=== PATIENT | female | born 1945 | race Caucasian/White ===

== ENCOUNTER 2020-01-16 08:16 | Outpatient (NON) | payer MEDICARE, MEDICAID, SELFPAY ==
[2020-01-15 20:21] LABS: Add Urine Microscopic? YES; Appearance Urine Clear (Clear); Bacteria Urine 1+ /hpf; Bilirubin Urine Negative (Negative); Blood Urine 1+ (Negative); Color Urine Yellow (Yellow); Glucose Urine UA Negative (Negative); Ketones Urine Negative (Negative); Leukocyte Esterase Ur 3+ LEU/UL (Negative); Mucus Urine Rare /lpf; Nitrate Urine Negative (Negative); Protein Urine Negative (Negative); RBC Urine 0-2 /hpf (0-2); Urobilinogen Urine Negative mg/dL (<2.0); WBC Urine 31-50 /hpf
[2020-01-16 16:50] LABS: SARS-CoV-2 RNA PCR Negative
== END 2020-01-16 08:17 ==
PROVIDERS: PCP Family Medicine; Visit Provider Family Medicine
DX: R68.89 Other general symptoms and signs (principal); Z20.828 Contact with and (suspected) exposure to other viral communicable diseases
CPT/HCPCS: 81001; 87086; 87088; 87635; C9803; U0003

== ENCOUNTER 2020-06-25 07:53 | Inpatient (IN) | payer MEDICARE, MEDICAID, SELFPAY ==
[2020-06-25] VITALS (11 sets, daily range): BP systolic 115–171; BP diastolic 59–103; PULSE 66–108; RESP 14–22; TEMP 36.3–37.2; O2SAT 93–99; BMI 22.7
--- NOTE | ~2020-06-25 | XR_ITS ---
EXAMINATION: XR chest PICC line DATE: 06/30/2020 15:37 INDICATION: Central line placement. TECHNIQUE: A single frontal view of the chest was obtained. COMPARISON: Chest single view 06/26/2020 FINDINGS: The chest demonstrates clear lungs without pneumonia, pleural effusion, or pneumothorax. Th e heart size is normal. A left upper extremity peripherally inserted central venous catheter (PICC) i s seen with tip at the superior cavoatrial junction. IMPRESSION: 1. PICC tip at the superior cavoatrial junction. Reviewed, dictated and finalized at location A.
--- NOTE | ~2020-06-25 | XR_ITS ---
EXAMINATION: XR chest 1V portable DATE: 06/26/2020 09:07 INDICATION: Febrile illness. TECHNIQUE: A single frontal view of the chest was obtained. COMPARISON: Chest 2 views 01/11/2019 FINDINGS: There is eventration of left hemidiaphragm. No pneumonia, pleural effusion, or pneumothorax . The heart size is normal. IMPRESSION: 1. No acute cardiopulmonary disease. Reviewed, dictated and finalized at location A.
[2020-06-25 08:20] LABS: Basophils Absolute Auto 0.1 K/mm3 (0.0-0.1); Basophils Percent Auto 0.7 % (0.2-1.2); Eosinophils Absolute Auto 0.1 K/mm3 (0-0.3); Eosinophils Percent Auto 0.8 % (0-4.4); Hematocrit 36.8 % (37.0-47.0); Immature Granulocyte Absolute 0.04 K/mm3 (0.00-0.031); Immature Granulocyte Percent A 0.4 % (0-0.5); Lymphocytes Absolute Auto 1.49 K/mm3 (0.9-3.2); Lymphocytes Percent Auto 13.4 % (18.3-44.2); Mean Corpuscular HGB Conc 32.6 g/dl (32-36); Mean Corpuscular Hemoglobin 32.3 pg (26-34); Mean Corpuscular Volume 98.9 fl (80-100); Mean Platelet Volume 10.3 fl (7.4-10.4); Monocytes Absolute Auto 0.7 K/mm3 (0.1-0.6); Neutrophils Absolute Auto 8.7 K/mm3 (1.3-6.7); Neutrophils Percent Auto 78.7 % (45.5-73.1); Platelet Count Result 248 k/mm3 (150-375); Red Blood Count 3.72 M/mm3 (4.2-5.4); Red Cell Distribution Width 12.5 % (11.5-14.5); White Blood Count 11.1 K/mm3 (4.5-10.0)
[2020-06-25 08:29] LABS: Alanine Aminotransferase 14 U/L (4-35); Albumin Level 3.7 g/dL (3.5-5.1); Alkaline Phosphatase 109 U/L (38-126); Anion Gap 7 mmol/L (8-16); Aspartate Amino Transferase 28 U/L (14-36); Bilirubin,Total 0.5 mg/dL (0.2-1.3); Blood Urea Nitrogen 17 mg/dL (7-17); Carbon Dioxide 29 mmol/L (22-30); Chloride 105 mmol/L (98-107); Estimated CRCL calculation 44 ml/min; Estimated Glomerular Filt Rate > 60; Glucose 92 mg/dL (65-105); Potassium 4.2 mmol/L (3.4-5.0); Sodium 141 mmol/L (137-145)
[2020-06-25 08:33] LABS: Add Urine Microscopic? YES; Appearance Urine Cloudy (Clear); Bacteria Urine Trace /hpf; Bilirubin Urine Negative (Negative); Blood Urine 1+ (Negative); Color Urine Yellow (Yellow); Glucose Urine UA Negative (Negative); Ketones Urine Negative (Negative); Leukocyte Esterase Ur 3+ LEU/UL (Negative); Mucus Urine Few /lpf; Nitrate Urine Positive (Negative); Protein Urine Negative (Negative); Specific Grav Ur 1.014 (1.001-1.035); Transitional Epi Cells Urine Rare /hpf (None Seen); Urobilinogen Urine Negative mg/dL (<2.0); WBC Urine 51-75 /hpf
--- NOTE | 2020-06-25 09:57 | ED.FEVER ---
HPI - Fever General Chief Complaint: Fever Stated Complaint: fever Time Seen by Provider: 06/25/20 08:12 History of Present Illness HPI Narrative: Patient is a 75-year-old female who presents ER with febrile illness. She had a fever over 102 ?F earlier this morning. Patient has been treated for the last 9 days with IM ceftriaxone for UTI. Patient has a chronic indwelling Yo due to neurogenic bladder. Last changed on 06/08/2020. She is denying any discomfort but history is somewhat limited due to expressive aphasia from a past CVA. The assisted is not have sensitivities to patient's urinalysis at this time. Patient has multiple drug allergies which limits how they can treat her UTIs. Related Data Home Medications Medication Instructions Recorded Confirmed acetaminophen 1,000 mg PO QID PRN 06/25/20 06/25/20 apixaban [Eliquis] 2.5 mg PO BID 06/25/20 06/25/20 aspirin 81 mg PO DAILY 06/25/20 06/25/20 atorvastatin 10 mg PO HS 06/25/20 06/25/20 baclofen 5 mg PO BID 06/25/20 06/25/20 cholecalciferol (vitamin D3) 25 mcg PO DAILY 06/25/20 06/25/20 [Vitamin D3] colchicine 0.6 mg PO DAILY 06/25/20 06/25/20 docusate sodium 100 mg PO DAILY 06/25/20 06/25/20 gabapentin 300 mg PO TID 06/25/20 06/25/20 lidocaine [Lidocaine Pain Relief] 1 patch TOPICAL DAILY PRN 06/25/20 06/25/20 magnesium hydroxide [Milk of 400 mg PO DAILY PRN 06/25/20 06/25/20 Magnesia] ondansetron HCl [Zofran] 4 mg PO Q8H 06/25/20 06/25/20 tamsulosin 0.4 mg PO DAILY 06/25/20 06/25/20 Allergies Allergy/AdvReac Type Severity Reaction Status Date / Time clindamycin Allergy Unknown Unknown Verified 06/25/20 14:27 doxycycline Allergy Unknown Nausea Verified 06/25/20 14:27 erythromycin base Allergy Unknown Unknown Verified 06/25/20 14:27 levofloxacin Allergy Unknown Unknown Verified 06/25/20 14:27 Penicillins Allergy Unknown Unknown Verified 06/25/20 14:27 Sulfa (Sulfonamide Allergy Unknown Unknown Verified 06/25/20 14:27 Antibiotics) sulfamethizole Allergy Unknown Unknown Verified 06/25/20 14:27 trimethoprim Allergy Unknown Unknown Verified 06/25/20 14:27 Review of Systems Review of Systems: ROS unobtainable: Yes unobtainable due to medical condition (Expressive aphasia) Constitutional: Constitutional: Denies chills and Reports fever(s) PMFSH Past Medical History Medical History (Updated 06/25/20 @ 19:32 by Jose Flores MD) Above knee amputation of right lower extremity Amputated toe 4th toe on the left Anxiety Cerebrovascular accident Chronic pain CKD (chronic kidney disease) COPD (chronic obstructive pulmonary disease) Depression Expressive aphasia GERD (gastroesophageal reflux disease) History of congestive heart failure Hyperlipidemia Hypertension Surgical History Surgical History H/O tubal ligation History of appendectomy History of section History of cholecystectomy History of tonsillectomy Family History Family History Father Cerebrovascular accident Hypertension Patient's father is Sibling Family history of lung cancer Family history of primary malignant neoplasm of liver Family history of malignant neoplasm of breast in first degree relative Family history of rheumatic fever Hypertension Patient's sister is Patient's brother is Mother Hypertension Family history of malignant neoplasm of cervix Patient's mother is Other Diabetes mellitus Family history of allergic disorder Family history of arthritis Family history of elevated blood lipids Family history of hemochromatosis Family history of kidney disease Family history of malignant neoplasm Social History Social History (Updated 06/25/20 @ 16:40 by Sabina Enriquez NP) Social History: the patient comes from [facility]. She is listed as being . it Is list
--- NOTE | 2020-06-25 14:09 | PC.NURSE ---
AT 1120 This patient, Mary Page, was admitted to 3 Med Surg Room 302-01. Patient/family oriented to hospital policies and general routines including ID bracelet, bed and alarms, visiting hours, pain management, procedures, bathroom and other care routines, personal items, smoking policy, room service/diet, and visiting hours. Information on how to activate the Rapid Response Team has been discussed. Patient/Family are encouraged to report perceived risks to care and to ask questions if they do not understand what they are told or what they should do.
[2020-06-25] MEDS: HYDROcodone/acetaminophen (*CRX) 5-325 MG TABLET 1 TAB PO (15:34)
--- NOTE | 2020-06-25 16:26 | PM.IMHP ---
H&P: HPI History of Present Illness Date/Time: 06/25/20 16:26 Chief complaint: uti Narrative: Mary Page is a 75 year old female Who is a resident at [facility]. She has had a history of having a CVA in the past and has expressive aphasia. The patient was sent here to the emergency room because she had a fever of 102 earlier this morning. She was treated for the last 9 days with IM ceftriaxone for UTI. The patient has a chronic Yo catheter indwelling. Patient is complaining of multiple areas of having discomfort. She has had right [id number] amputation complains of having pain in that stump as well as her left foot left knee and her left arm. The senior living did not have sensitivities to patient's urinalysis at this time. She has multiple drug allergies which limits the treatment of UTIs. Patient has no cough but feels very achy. Her white count is noted to be 11.1. Her urine was positive for nitrates. 3+ leukocyte esterase. WBCs in the urine 51-75. Since the patient has multiple drug allergies she was started on Primaxin. Patient was not admitted observation on 06/25/2020. Review of Systems Review of Systems: Narrative: The patient is able to answer some questions. The patient tells me that she is in a lot of discomfort at this time and that her leg bag is uncomfortable because it is full of urine. She has having problems with expressive aphasia. She can speak in sentences at sometimes but other times she is not able to express herself. She then gets very frustrated because she is not able to express herself. ROS unobtainable: Yes unobtainable due to mental status Constitutional: Constitutional: Reports as per HPI and Reports no additional constitutional complaints Eyes: Eyes: Reports as per HPI and Reports no additional eye complaints ENT: Reports system reviewed and no additional complaints, except as documented and Reports Normal hearing present Cardiovascular: Cardiovascular: Reports no additional cardiovascular complaints Respiratory: Respiratory: Reports no additional respiratory complaints and Reports no additional respiratory complaints Gastrointestinal: Gastrointestinal: Reports as per HPI and Reports no additional gastrointestinal complaints Musculoskeletal: Musculoskeletal: Reports no additional musculoskeletal complaints Integumentary/Breasts: Skin/Breast: Reports system reviewed and no additional complaints, except as docu and Reports as per HPI Neurologic: Reports system reviewed and no additional complaints, except as documented, Reports as per HPI and Reports Normal hearing present Psychiatric: Psychiatric: Reports no additional psychiatric complaints and Reports as per HPI Endocrine: Endocrine: Reports no additional endocrine complaints Hematologic/Lymphatic: Hematologic/Lymphatic: Reports no additional hematologic/lymphatic complaints Allergic/Immunologic: Allergic/Immunologic: Reports no additional allergic/immunologic complaints FOR[facility]LY [facility] Past Medical History Medical History Above knee amputation of right lower extremity Amputated toe 4th toe on the left Anxiety Cerebrovascular accident CKD (chronic kidney disease) COPD (chronic obstructive pulmonary disease) Depression Expressive aphasia GERD (gastroesophageal reflux disease) History of congestive heart failure Hyperlipidemia Hypertension Surgical History Surgical History H/O tubal ligation History of appendectomy History of section History of cholecystectomy History of tonsillectomy Family History Family History Father Cerebrovascular accident Hypertension Patient's father is Sibling Family history of lung cancer Family history of primary malignant neoplasm of liver Family history of malignant neoplasm of breast
[2020-06-25] MEDS: GABAPENTIN 300 MG CAPSULE PO (17:52)
[2020-06-25] MEDS: APIXABAN 2.5 MG TABLET PO (17:52)
[2020-06-25] MEDS: BACLOFEN 5 MG TABLET PO (17:52)
[2020-06-25] MEDS: ONDANSETRON INJ 4 MG/2 ML VIAL IV PUSH (20:06)
[2020-06-25] MEDS: ATORVASTATIN 10 MG TABLET PO (20:40)
[2020-06-25] MEDS: traMADol HCL (*CRX) 50 MG TABLET PO (22:54)
[2020-06-26] MEDS: oxyCODONE HCL (*CRX) 5 MG TAB IR PO (01:37)
[2020-06-26 05:51] LABS: Basophils Absolute Auto 0.1 K/mm3 (0.0-0.1); Eosinophils Absolute Auto 0.1 K/mm3 (0-0.3); Eosinophils Percent Auto 1.2 % (0-4.4); Hematocrit 38.1 % (37.0-47.0); Hemoglobin 12.2 g/dL (12.0-15.0); Immature Granulocyte Absolute 0.06 K/mm3 (0.00-0.031); Immature Granulocyte Percent A 0.9 % (0-0.5); Lymphocytes Absolute Auto 2.39 K/mm3 (0.9-3.2); Lymphocytes Percent Auto 34.8 % (18.3-44.2); Mean Corpuscular Hemoglobin 32.8 pg (26-34); Mean Corpuscular Volume 102.4 fl (80-100); Mean Platelet Volume 10.6 fl (7.4-10.4); Monocytes Absolute Auto 0.6 K/mm3 (0.1-0.6); Monocytes Percent Auto 8.9 % (2.6-8.5); Neutrophils Absolute Auto 3.7 K/mm3 (1.3-6.7); Neutrophils Percent Auto 53.2 % (45.5-73.1); Platelet Count Result 247 k/mm3 (150-375); Red Blood Count 3.72 M/mm3 (4.2-5.4); Red Cell Distribution Width 12.4 % (11.5-14.5); White Blood Count 6.9 K/mm3 (4.5-10.0)
[2020-06-26 05:52] VITALS: BP 160/80; PULSE 101; RESP 18; TEMP 36.7; O2SAT 95
[2020-06-26 05:58] LABS: Alanine Aminotransferase 15 U/L (4-35); Albumin Level 3.8 g/dL (3.5-5.1); Alkaline Phosphatase 114 U/L (38-126); Anion Gap 7 mmol/L (8-16); Aspartate Amino Transferase 32 U/L (14-36); Bilirubin,Total 0.6 mg/dL (0.2-1.3); Blood Urea Nitrogen 16 mg/dL (7-17); Calcium 9.5 mg/dL (8.4-10.2); Carbon Dioxide 30 mmol/L (22-30); Chloride 105 mmol/L (98-107); Estimated CRCL calculation 51 ml/min; Estimated Glomerular Filt Rate > 60; Glucose 84 mg/dL (65-105); Magnesium 1.9 mg/dL (1.6-2.3); Potassium 3.9 mmol/L (3.4-5.0); Sodium 142 mmol/L (137-145)
[2020-06-26 06:13] VITALS: BP 148/70
[2020-06-26 07:05] LABS: Influenza Control Positive
[2020-06-26] MEDS: traMADol HCL (*CRX) 50 MG TABLET PO ×2 (08:13→20:13)
--- NOTE | 2020-06-26 09:30 | PC.NURSE ---
Pt to MRI per stretcher.
[2020-06-26] MEDS: GABAPENTIN 300 MG CAPSULE PO ×3 (10:19→17:56)
[2020-06-26] MEDS: TAMSULOSIN HCL 0.4 MG CAPSULE PO (10:19)
[2020-06-26] MEDS: DOCUSATE SODIUM 100 MG CAPSULE PO (10:20)
[2020-06-26] MEDS: CHOLECALCIFEROL 1,000 UNITS TABLET 1000 UNITS PO (10:20)
[2020-06-26] MEDS: COLCHICINE 0.6 MG TABLET PO (10:20)
[2020-06-26] MEDS: ASPIRIN 81 MG CHEWABLE TABLET PO (10:20)
[2020-06-26] MEDS: APIXABAN 2.5 MG TABLET PO ×2 (10:20→17:56)
[2020-06-26] MEDS: BACLOFEN 5 MG TABLET PO ×2 (10:20→17:56)
[2020-06-26 14:00] VITALS: BP 131/76; PULSE 77; RESP 18; TEMP 36.6; O2SAT 99
--- NOTE | 2020-06-26 14:32 | PM.IMPN ---
Progress Note: A&P Assessment and Plan (1) UTI (urinary tract infection): Code(s): N39.0 - Urinary tract infection, site not specified Status: Acute Assessment and Plan: The patient has a chronic indwelling henderson catheter due to neurogenic bladder. She has a hx of many multidrug-resistant UTIs. [facility] but fevers persisted up to 102 10/ prompting admission. Urinalysis was grossly abnormal and urinalysis demonstrates pseudomonas aeruginosa and enterococcus. Plan to continue empiric primaxin which should cover both. She has not had any further fevers. Blood cultures demonstrate no growth to date. Await final sensitivities and adjust antibiotics accordingly. She may benefit from discussion with urology regarding SP tube placement given recurrent UTIs with the henderson catheter. (2) Hypertension: Code(s): I10 - Essential (primary) hypertension Status: Chronic Assessment and Plan: Blood pressures were elevated initially but have improved. Most recent BP is 126/69. She is not on any antihypertensives prior to admission. Continue to monitor BP closely. (3) Hyperlipidemia: Code(s): E78.5 - Hyperlipidemia, unspecified Status: Chronic Assessment and Plan: LFTs were reviewed and are normal. Continue atorvastatin. 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 Continue eliquis and ASA. Continue atorvastatin. (5) COPD (chronic obstructive pulmonary disease): Code(s): J44.9 - Chronic obstructive pulmonary disease, unspecified Status: Chronic Assessment and Plan: Continue bronchodilators as needed. (6) Chronic pain: Code(s): G89.29 - Other chronic pain Status: Chronic Assessment and Plan: Continue baclofen, gabapentin, lidocaine patch, and tramadol as needed. (7) Febrile illness: Code(s): R50.9 - Fever, unspecified Status: Acute Assessment and Plan: Likely secondary to UTI. Influenza was negative. COVID-19 testing was ordered is negative. Subjective Date/time seen: 06/26/20 14:32 Mrs. Page is a 75 y.o. female with PMH significant for neurogenic bladder (with chronic indwelling henderson) and expressive aphasia due to hx of CVA 01/2019, recurrent multi-drug resistant UTIs, RLE AKA, CKD, COPD, GERD, HLD, HTN who is seen in follow-up for urinary tract infection. She is tearful today because of her difficulty communicating her needs. She is having trouble with the TV and did not like her fruit. She also wanted to ensure that she is not getting an antibiotic that she is allergic to and I assured her that she is not. She has no additional complaints. She denies subjective fever and chills. She denies chest pain, dyspnea, and palpitations. She denies abdominal pain and flank pain. She denies headaches, lightheadedness, and dizziness. Her bowels are regular Review of Systems Review of Systems: All systems reviewed & are unremarkable except as noted in HPI and below Exam Narrative: Exam Narrative: General: Pleasant, well-developed, and well-nourished, chronically ill-appearing 75 y.o. female lying semi-recumbent in bed after finishing her lunch. HEENT: Normocephalic and atraumatic. EOMI. Oral mucosa moist. Neck: Supple. Cardiac: Regular rate and rhythm. S1 and S2 normal. Lungs: Lungs are clear to auscultation bilaterally. Abdomen: Bowel sounds are normoactive. Abdomen is soft, non-distended, and non-tender. Extremities: Right AKA present. No LLE edema or calf tenderness. Left bunion and callus present to the left lateral foot. DP and PT 1+ on the left. Neurological: Alert and oriented x3. Exam non-focal to casual conversation. Expressive aphasia present. Skin: Warm and dry without rashes or lesions. Psychiatric: Judgment and insight intact but patient has difficul
[2020-06-26 17:45] LABS: SARS-CoV-2 RNA PCR Negative
[2020-06-26] MEDS: ATORVASTATIN 10 MG TABLET PO (20:15)
[2020-06-26 22:00] VITALS: BP 120/69; PULSE 91; RESP 16; TEMP 36.6; O2SAT 94
[2020-06-27 06:00] VITALS: BP 126/69; PULSE 82; RESP 18; TEMP 36.5; O2SAT 94
[2020-06-27 07:39] LABS: Basophils Absolute Auto 0.1 K/mm3 (0.0-0.1); Basophils Percent Auto 1.2 % (0.2-1.2); Eosinophils Absolute Auto 0.1 K/mm3 (0-0.3); Eosinophils Percent Auto 2.4 % (0-4.4); Hematocrit 36.5 % (37.0-47.0); Hemoglobin 11.5 g/dL (12.0-15.0); Immature Granulocyte Absolute 0.02 K/mm3 (0.00-0.031); Immature Granulocyte Percent A 0.4 % (0-0.5); Lymphocytes Absolute Auto 1.35 K/mm3 (0.9-3.2); Lymphocytes Percent Auto 26.9 % (18.3-44.2); Mean Corpuscular HGB Conc 31.5 g/dl (32-36); Mean Corpuscular Hemoglobin 32.5 pg (26-34); Mean Corpuscular Volume 103.1 fl (80-100); Mean Platelet Volume 10.5 fl (7.4-10.4); Monocytes Absolute Auto 0.5 K/mm3 (0.1-0.6); Monocytes Percent Auto 10.4 % (2.6-8.5); Neutrophils Absolute Auto 2.9 K/mm3 (1.3-6.7); Neutrophils Percent Auto 58.7 % (45.5-73.1); Platelet Count Result 237 k/mm3 (150-375); Red Blood Count 3.54 M/mm3 (4.2-5.4); Red Cell Distribution Width 12.4 % (11.5-14.5)
[2020-06-27 07:50] LABS: Anion Gap 3 mmol/L (8-16); Blood Urea Nitrogen 19 mg/dL (7-17); Carbon Dioxide 34 mmol/L (22-30); Chloride 102 mmol/L (98-107); Estimated CRCL calculation 44 ml/min; Estimated Glomerular Filt Rate > 60; Glucose 111 mg/dL (65-105); Potassium 4.3 mmol/L (3.4-5.0); Sodium 139 mmol/L (137-145)
[2020-06-27 08:00] VITALS: PULSE 82; RESP 18; O2SAT 94
[2020-06-27] MEDS: GABAPENTIN 300 MG CAPSULE PO ×3 (09:36→17:54)
[2020-06-27] MEDS: ASPIRIN 81 MG CHEWABLE TABLET PO (09:37)
[2020-06-27] MEDS: TAMSULOSIN HCL 0.4 MG CAPSULE PO (09:37)
[2020-06-27] MEDS: BACLOFEN 5 MG TABLET PO ×2 (09:37→17:53)
[2020-06-27] MEDS: COLCHICINE 0.6 MG TABLET PO (09:37)
[2020-06-27] MEDS: CHOLECALCIFEROL 1,000 UNITS TABLET 1000 UNITS PO (09:37)
[2020-06-27] MEDS: APIXABAN 2.5 MG TABLET PO ×2 (09:37→17:54)
[2020-06-27] MEDS: DOCUSATE SODIUM 100 MG CAPSULE PO (09:40)
[2020-06-27 14:00] VITALS: BP 110/63; PULSE 100; RESP 18; TEMP 36.7; O2SAT 92
--- NOTE | 2020-06-27 14:20 | PM.IMPN ---
Progress Note: A&P Assessment and Plan (1) UTI (urinary tract infection): Code(s): N39.0 - Urinary tract infection, site not specified Status: Acute Assessment and Plan: The patient has a chronic indwelling henderson catheter due to neurogenic bladder. She has a hx of many multidrug-resistant UTIs. She received 7 days of IM ceftriaxone at the assisted but fevers persisted up to 102F 06/25 prompting admission. Urinalysis was grossly abnormal and urinalysis demonstrates pseudomonas aeruginosa and enterococcus. Plan to continue empiric primaxin which should cover both. She has not had any further fevers. Blood cultures demonstrate no growth to date. Await final sensitivities and adjust antibiotics accordingly. She may benefit from discussion with urology regarding SP tube placement given recurrent UTIs with the henderson catheter. (2) Hypertension: Code(s): I10 - Essential (primary) hypertension Status: Chronic Assessment and Plan: Blood pressures were elevated initially but have improved. She is not on any antihypertensives prior to admission. Continue to monitor BP closely. (3) Hyperlipidemia: Code(s): E78.5 - Hyperlipidemia, unspecified Status: Chronic Assessment and Plan: LFTs were reviewed and are normal. Continue atorvastatin. 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 Continue eliquis and ASA. Continue atorvastatin. (5) COPD (chronic obstructive pulmonary disease): Code(s): J44.9 - Chronic obstructive pulmonary disease, unspecified Status: Chronic Assessment and Plan: Chronic without acute issues. Continue bronchodilators as needed. (6) Chronic pain: Code(s): G89.29 - Other chronic pain Status: Chronic Assessment and Plan: Continue baclofen, gabapentin, lidocaine patch, and tramadol as needed. (7) Febrile illness: Code(s): R50.9 - Fever, unspecified Status: Acute Assessment and Plan: Likely secondary to UTI. Influenza was negative. COVID-19 testing was ordered and negative. Subjective Date/time seen: 06/27/20 14:20 Mrs. Page is a 75 y.o. female with PMH significant for neurogenic bladder (with chronic indwelling henderson) and expressive aphasia due to hx of CVA 01/2019, recurrent multi-drug resistant UTIs, RLE AKA, CKD, COPD, GERD, HLD, HTN who is seen in follow-up for urinary tract infection. She is in better spirits today and doing well. She offers no specific complaints. She is eating well. She has no chest pain, shortness of breath, nausea, or vomiting. Review of Systems Review of Systems: All systems reviewed & are unremarkable except as noted in HPI and below Exam Narrative: Exam Narrative: General: Well-developed and well-nourished, chronically ill-appearing 75 y.o. female lying semi-recumbent in bed in no acute distress. HEENT: Normocephalic and atraumatic. Oral mucosa moist. Neck: Supple. Cardiac: Regular rate and rhythm. S1 and S2 normal. Lungs: Lungs are clear to auscultation bilaterally. Abdomen: +Bowel sounds. Abdomen soft, non-distended, and non-tender. : Chronic indwelling henderson draining mildly cloudy yellow urine. Extremities: Right AKA. No LLE edema or calf tenderness. DP and PT 1+ on the left. Neurological: Alert and oriented x3. Exam non-focal to casual conversation. Expressive aphasia present. Skin: Warm and dry. Psychiatric: Judgment and insight intact but patient has difficulty communicating due to expressive aphasia. She answers questions appropriately. Objective Data Meds/Results Radiology Results: ITS Impressions Chest X-Ray 06/30/20 15:38 IMPRESSION: 1. PICC tip at the superior cavoatrial junction. Quality VTE Prophylaxis VTE prophylaxis: mechanical ordered and pharmacologic ordered (Prior to admission 2.5mg eliquis BID will be cont
[2020-06-27] MEDS: traMADol HCL (*CRX) 50 MG TABLET PO (17:53)
[2020-06-27] MEDS: ATORVASTATIN 10 MG TABLET PO (20:13)
[2020-06-27 22:00] VITALS: BP 122/60; PULSE 81; RESP 16; TEMP 37.1; O2SAT 92
[2020-06-28] MEDS: oxyCODONE HCL (*CRX) 5 MG TAB IR PO ×3 (01:39→18:21)
[2020-06-28 06:00] VITALS: BP 117/59; PULSE 74; RESP 18; TEMP 36.6; O2SAT 91
[2020-06-28 06:24] LABS: Basophils Absolute Auto 0.1 K/mm3 (0.0-0.1); Eosinophils Absolute Auto 0.2 K/mm3 (0-0.3); Eosinophils Percent Auto 3.4 % (0-4.4); Hematocrit 34.8 % (37.0-47.0); Hemoglobin 11.1 g/dL (12.0-15.0); Immature Granulocyte Absolute 0.01 K/mm3 (0.00-0.031); Immature Granulocyte Percent A 0.2 % (0-0.5); Lymphocytes Absolute Auto 1.88 K/mm3 (0.9-3.2); Lymphocytes Percent Auto 37.3 % (18.3-44.2); Mean Corpuscular HGB Conc 31.9 g/dl (32-36); Mean Corpuscular Volume 100.3 fl (80-100); Mean Platelet Volume 10.6 fl (7.4-10.4); Monocytes Absolute Auto 0.5 K/mm3 (0.1-0.6); Monocytes Percent Auto 9.5 % (2.6-8.5); Neutrophils Absolute Auto 2.5 K/mm3 (1.3-6.7); Neutrophils Percent Auto 48.6 % (45.5-73.1); Platelet Count Result 249 k/mm3 (150-375); Red Blood Count 3.47 M/mm3 (4.2-5.4); Red Cell Distribution Width 12.1 % (11.5-14.5)
[2020-06-28 06:45] LABS: Anion Gap 6 mmol/L (8-16); Blood Urea Nitrogen 18 mg/dL (7-17); Carbon Dioxide 31 mmol/L (22-30); Chloride 102 mmol/L (98-107); Estimated CRCL calculation 44 ml/min; Estimated Glomerular Filt Rate > 60; Glucose 97 mg/dL (65-105); Potassium 3.6 mmol/L (3.4-5.0); Sodium 139 mmol/L (137-145)
[2020-06-28] MEDS: traMADol HCL (*CRX) 50 MG TABLET PO ×2 (06:57→13:31)
[2020-06-28 08:00] VITALS: PULSE 74; RESP 18; O2SAT 91
[2020-06-28] MEDS: COLCHICINE 0.6 MG TABLET PO (09:15)
[2020-06-28] MEDS: APIXABAN 2.5 MG TABLET PO ×2 (09:15→18:23)
[2020-06-28] MEDS: DOCUSATE SODIUM 100 MG CAPSULE PO (09:15)
[2020-06-28] MEDS: TAMSULOSIN HCL 0.4 MG CAPSULE PO (09:15)
[2020-06-28] MEDS: BACLOFEN 5 MG TABLET PO ×2 (09:15→18:22)
[2020-06-28] MEDS: GABAPENTIN 300 MG CAPSULE PO ×3 (09:15→18:22)
[2020-06-28] MEDS: ASPIRIN 81 MG CHEWABLE TABLET PO (09:15)
[2020-06-28] MEDS: CHOLECALCIFEROL 1,000 UNITS TABLET 1000 UNITS PO (09:15)
[2020-06-28 09:16] LABS: Iron 60 ug/dL (37-170)
[2020-06-28 09:25] LABS: Percent Iron Saturation 24 % (20-50)
[2020-06-28 09:26] LABS: Transferrin 161 mg/dL (206-381)
[2020-06-28 10:29] LABS: Folic Acid > 20.0 ng/mL (2.76->20)
--- NOTE | 2020-06-28 12:47 | PM.IMPN ---
Progress Note: A&P Assessment and Plan (1) UTI (urinary tract infection): Code(s): N39.0 - Urinary tract infection, site not specified Status: Acute Assessment and Plan: The patient has a chronic indwelling henderson catheter due to neurogenic bladder. She has a hx of many multidrug-resistant UTIs. She received 7 days of IM ceftriaxone at the [facility] but fevers persisted up to 102F 06/25 prompting admission. Urinalysis was grossly abnormal and urinalysis demonstrates pseudomonas aeruginosa and enterococcus. Pseudomonas is susceptible to imipenem and there are PO options available for discharge. Enterococcus susceptibilities are pending. Plan to continue empiric primaxin which should cover both until enterococcus sensitivities are available. She has not had any further fevers. Blood cultures demonstrate no growth to date. Await final sensitivities and adjust antibiotics accordingly. She may benefit from discussion with urology regarding SP tube placement given recurrent UTIs with the ehnderson catheter. (2) Hypertension: Code(s): I10 - Essential (primary) hypertension Status: Chronic Assessment and Plan: Blood pressures were elevated initially but have improved. Most recent BP is 109/56. She is resting. She is not on any antihypertensives prior to admission. Continue to monitor BP closely. (3) Hyperlipidemia: Code(s): E78.5 - Hyperlipidemia, unspecified Status: Chronic Assessment and Plan: LFTs were reviewed and are normal. Continue atorvastatin. 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 Continue eliquis and ASA. Continue atorvastatin. (5) COPD (chronic obstructive pulmonary disease): Code(s): J44.9 - Chronic obstructive pulmonary disease, unspecified Status: Chronic Assessment and Plan: Continue bronchodilators as needed. (6) Chronic pain: Code(s): G89.29 - Other chronic pain Status: Chronic Assessment and Plan: Continue baclofen, gabapentin, lidocaine patch, and tramadol as needed. (7) Febrile illness: Code(s): R50.9 - Fever, unspecified Status: Acute Assessment and Plan: Likely secondary to UTI. Influenza was negative. COVID-19 testing was ordered and negative. Subjective Date/time seen: 06/28/20 12:47 Mrs. Page is a 75 y.o. female with PMH significant for neurogenic bladder (with chronic indwelling henderson) and expressive aphasia due to hx of CVA 01/2019, recurrent multi-drug resistant UTIs, RLE AKA, CKD, COPD, GERD, HLD, HTN who is seen in follow-up for urinary tract infection. Mrs. Page is doing well today. She reports that her chronic pain is well-controlled on her home pain regimen. She denies subjective fever and chills. She denies chest pain, dyspnea, and palpitations. She is tolerating her diet. She has no nausea, vomiting, or abdominal pain. She denies dizziness, lightheadedness, and headaches. Last bowel movement was two days ago. She has no other concerns. Review of Systems Review of Systems: All systems reviewed & are unremarkable except as noted in HPI and below Exam Narrative: Exam Narrative: General: Pleasant, well-developed, and well-nourished, chronically ill-appearing 75 y.o. female lying in bed resting in no acute distress. HEENT: Normocephalic and atraumatic. EOMI. Oral mucosa moist. Neck: Supple. Cardiac: Regular rate and rhythm. S1 and S2 normal. Lungs: Lungs are clear to auscultation bilaterally. Abdomen: Bowel sounds are normoactive. Abdomen is soft, non-distended, and non-tender. Extremities: Right AKA present. LLE without edema or calf tenderness. Dorsalis pedis and posterior tibial pulse 2+ on left. Neurological: Alert. Exam non-focal to casual conversation. Expressive aphasia present but understanding intact. Skin: Warm and dry. Psychiatric: Judgment
[2020-06-28 14:00] VITALS: BP 109/56; PULSE 87; RESP 20; TEMP 36.8; O2SAT 94
[2020-06-28] MEDS: ONDANSETRON INJ 4 MG/2 ML VIAL IV PUSH (21:00)
[2020-06-28] MEDS: ATORVASTATIN 10 MG TABLET PO (21:01)
[2020-06-28 22:00] VITALS: BP 106/67; PULSE 78; RESP 16; TEMP 36.6; O2SAT 95
[2020-06-29 06:00] VITALS: BP 112/77; PULSE 71; RESP 18; TEMP 36.8; O2SAT 93
[2020-06-29 06:16] LABS: Hematocrit 34.3 % (37.0-47.0); Hemoglobin 10.9 g/dL (12.0-15.0); Mean Corpuscular HGB Conc 31.8 g/dl (32-36); Mean Corpuscular Hemoglobin 32.5 pg (26-34); Mean Corpuscular Volume 102.4 fl (80-100); Mean Platelet Volume 10.1 fl (7.4-10.4); Platelet Count Result 252 k/mm3 (150-375); Red Blood Count 3.35 M/mm3 (4.2-5.4); Red Cell Distribution Width 12.1 % (11.5-14.5); White Blood Count 4.4 K/mm3 (4.5-10.0)
[2020-06-29 06:27] LABS: Anion Gap 5 mmol/L (8-16); Blood Urea Nitrogen 22 mg/dL (7-17); Calcium 8.9 mg/dL (8.4-10.2); Carbon Dioxide 33 mmol/L (22-30); Chloride 103 mmol/L (98-107); Estimated CRCL calculation 39 ml/min; Estimated Glomerular Filt Rate > 60; Glucose 88 mg/dL (65-105); Potassium 3.9 mmol/L (3.4-5.0); Sodium 141 mmol/L (137-145)
[2020-06-29 08:00] VITALS: PULSE 71; RESP 18; O2SAT 93
[2020-06-29] MEDS: BACLOFEN 5 MG TABLET PO ×2 (08:52→16:45)
[2020-06-29] MEDS: ASPIRIN 81 MG CHEWABLE TABLET PO (08:52)
[2020-06-29] MEDS: COLCHICINE 0.6 MG TABLET PO (08:52)
[2020-06-29] MEDS: APIXABAN 2.5 MG TABLET PO ×2 (08:52→16:45)
[2020-06-29] MEDS: CHOLECALCIFEROL 1,000 UNITS TABLET 1000 UNITS PO (08:53)
[2020-06-29] MEDS: TAMSULOSIN HCL 0.4 MG CAPSULE PO (08:53)
[2020-06-29] MEDS: GABAPENTIN 300 MG CAPSULE PO ×3 (08:53→17:11)
[2020-06-29] MEDS: DOCUSATE SODIUM 100 MG CAPSULE PO (09:12)
[2020-06-29 11:16] LABS: SARS-CoV-2 RNA PCR Negative
--- NOTE | 2020-06-29 13:18 | PM.IMPN ---
Progress Note: A&P Assessment and Plan (1) UTI (urinary tract infection): Code(s): N39.0 - Urinary tract infection, site not specified Status: Acute Assessment and Plan: The patient has a chronic indwelling henderson catheter due to neurogenic bladder. She has a hx of many multidrug-resistant UTIs. She received 7 days of IM ceftriaxone at the longterm but fevers persisted up to 102F 06/25 prompting admission. Urinalysis was grossly abnormal and urinalysis demonstrates pseudomonas aeruginosa and enterococcus. Pseudomonas is susceptible to imipenem which she has been on. Enterococcus susceptibilities are pending. Dr. Blas with infectious disease was consulted as her allergies limit oral options for discharge. Dr. Blas recommends primaxin for 10 days total, through 07/04. Continue empiric primaxin (day 510 - initiated 06/25). She has not had any further fevers. Blood cultures demonstrate no growth to date. She may benefit from discussion with urology regarding SP tube placement given recurrent UTIs with the henderson catheter. Care coordination has reached out to the longterm to see if she can continue IV primaxin at the facility. Will await further input from care coordination. (2) Hypertension: Code(s): I10 - Essential (primary) hypertension Status: Chronic Assessment and Plan: Blood pressures were elevated initially but have improved. Most recent BP is 118/62. She is not on any antihypertensives prior to admission. Continue to monitor BP closely. (3) Hyperlipidemia: Code(s): E78.5 - Hyperlipidemia, unspecified Status: Chronic Assessment and Plan: LFTs were reviewed and are normal. Continue atorvastatin. 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 Continue eliquis and ASA. Continue atorvastatin. (5) COPD (chronic obstructive pulmonary disease): Code(s): J44.9 - Chronic obstructive pulmonary disease, unspecified Status: Chronic Assessment and Plan: Chronic without acute issues. Continue bronchodilators as needed. (6) Chronic pain: Code(s): G89.29 - Other chronic pain Status: Chronic Assessment and Plan: Continue baclofen, gabapentin, lidocaine patch, and tramadol as needed. (7) Febrile illness: Code(s): R50.9 - Fever, unspecified Status: Acute Assessment and Plan: Likely secondary to UTI. Influenza was negative. COVID-19 testing was ordered and negative. (8) Pain, dental: Code(s): K08.89 - Other specified disorders of teeth and supporting structures Status: Acute Assessment and Plan: There is a filling present at the tooth she thinks may be hurting. I do not appreciate any abscess. I have recommended that she follow-up with the dentist outpatient for further evaluation. Continue analgesics as needed. Continue to monitor. (9) Anemia: Code(s): D64.9 - Anemia, unspecified Status: Acute Assessment and Plan: Macrocytic. She was not anemia on admission. Hb is 10.9 and Hct 11.2. She has no evidence of bleeding. Vitamin B12 and folate were sufficient.Iron is sufficient. Continue to monitor and transfuse as needed to maintain Hb >7. Subjective Date/time seen: 06/29/20 13:18 Mrs. Page is a 75 y.o. female with PMH significant for neurogenic bladder (with chronic indwelling henderson) and expressive aphasia due to hx of CVA 01/2019, recurrent multi-drug resistant UTIs, RLE AKA, CKD, COPD, GERD, HLD, HTN who is seen in follow-up for urinary tract infection. She feels better overall. Her only complaint is dental pain in the right lower molar. She has a filling in place there. She reports a good appetite. She denies nausea and vomiting. She denies abdominal pain. She notes that her chronic pain is controlled. She denies subjective fever and chills. She de
[2020-06-29 14:00] VITALS: BP 118/62; PULSE 92; RESP 18; TEMP 36.6; O2SAT 90
--- NOTE | 2020-06-29 14:53 | WPDINFPN2 ---
Progress Note: A&P Assessment and Plan (1) UTI (urinary tract infection): Code(s): N39.0 - Urinary tract infection, site not specified Status: Acute Assessment and Plan: fever/uti with chronic Yo REC Imipenem # 5 / 10 days through 07/04 Subjective Date/time seen: 06/29/20 14:53 Objective Data Vital Signs Vital Signs: Vital Signs - 24 hr 06/28/20 22:00 06/29/20 06:00 06/29/20 08:00 Temperature 36.6 C 36.8 C Pulse Rate 78 71 71 Respiratory Rate 16 18 18 Blood Pressure 106/67 112/77 Pulse Oximetry 95 93 93 Intake/Output Intake/Output: Intake & Output 06/26/20 06/27/20 06/28/20 06/29/20 23:59 23:59 23:59 23:59 Intake Total 1510 1110 1410 720 Output Total 1200 600 750 450 Balance 310 510 660 270 Meds/Results Medications: Active Medications Generic Name Dose Route Start Last Admin Trade Name Freq PRN Reason Stop Dose Admin Acetaminophen 650 mg 06/25/20 10:32 Acetaminophen 325 Mg Tablet PO Q4H PRN Mild Pain (1-3) or Fever Albuterol 2 puff 06/25/20 16:54 Albuterol Sulfate (*Sp) Aerosol 1 Puff INHALATION QIDRT PRN Shortness Of Breath Apixaban 2.5 mg 06/25/20 17:00 06/29/20 08:52 Apixaban 2.5 Mg Tablet PO 2.5 mg BID [facility] Administration Aspirin 81 mg 06/26/20 09:00 06/29/20 08:52 Aspirin 81 Mg Chewable Tablet PO 81 mg DAILY L[facility] Administration Atorvastatin Calcium 10 mg 06/25/20 21:00 06/28/20 21:01 Atorvastatin 10 Mg Tablet PO 10 mg HS L[facility]IS Administration Baclofen 5 mg 06/25/20 17:00 06/29/20 08:52 Baclofen 5 Mg Tablet PO 5 mg BID [facility] Administration Colchicine 0.6 mg 06/26/20 09:00 06/29/20 08:52 Colchicine 0.6 Mg Tablet PO 0.6 mg DAILY [facility] Administration Docusate Sodium 100 mg 06/26/20 09:00 06/29/20 09:12 Docusate Sodium 100 Mg Capsule PO 100 mg DAILY [facility] Administration Gabapentin 300 mg 06/25/20 17:00 06/29/20 08:53 Gabapentin 300 Mg Capsule PO 300 mg TID [facility] Administration Imipenem/Cilastatin Sodium 250 mg in 100 mls @ 300 mls/hr 06/25/20 18:00 06/29/20 11:22 Primaxin 250 Mg/D5w 100 Ml IVPB Not Given Q6HR L[facility] Dextrose 1,000 mls @ 100 mls/hr 06/27/20 14:19 Dextrose 5% 1,000 Ml IVPB PRN PRN Hypoglycemia Protocol Magnesium Hydroxide 5 ml 06/25/20 16:22 Magnesium Hydroxide Susp 30 Ml Udc PO DAILY PRN Constipation Morphine Sulfate 4 mg 06/25/20 10:32 Morphine Sulfate (*Crx) 4 Mg/Ml Inj IV PUSH Q2H PRN Pain Rated 7-10 Ondansetron HCl 4 mg 06/25/20 10:32 06/28/20 21:00 Ondansetron Inj 4 Mg/2 Ml Vial IV PUSH 4 mg Q4H PRN Administration Nausea Oxycodone HCl 5 mg 06/25/20 16:22 06/28/20 18:21 Oxycodone Hcl (*Crx) 5 Mg Tab Ir PO 5 mg Q6H PRN Administration PAIN RATED 7-10 Tamsulosin HCl 0.4 mg 06/26/20 09:00 06/29/20 08:53 Tamsulosin Hcl 0.4 Mg Capsule PO 0.4 mg DAILY [facility] Administration Tramadol HCl 50 mg 06/25/20 17:00 06/28/20 13:31 Tramadol Hcl (*Crx) 50 Mg Tablet PO 50 mg QID PRN Administration Pain Rated 4-6 Vitamin D 1,000 units 06/26/20 09:00 06/29/20 08:53 Cholecalciferol 1,000 Units Tablet PO 1,000 units DAILY [facility] Administration Radiology Results: ITS Impressions Chest X-Ray 06/26/20 09:11 IMPRESSION: 1. No acute cardiopulmonary disease. Labs Labs: Laboratory Results - last 24 hr 06/28/20 06/29/20 06/29/20 15:29 06:07 06:07 WBC 4.4 L RBC 3.35 L Hgb 10.9 L Hct 34.3 L MCV 102.4 H MCH 32.5 MCHC 31.8 L RDW 12.1 Plt Count 252 MPV 10.1 Sodium 141 Potassium 3.9 Chloride 103 Carbon Dioxide 33 H Anion Gap 5 L BUN 22 H Creatinine 0.80 Estim Creat Clear Calc 39 Estimated GFR > 60 Glucose 88 Calcium 8.9 SARS-CoV-2 RNA (RT-PCR) Negative
--- NOTE | 2020-06-29 17:30 | CONS_ITS ---
DATE OF CONSULTATION: 06/29/2020 REASON FOR CONSULTATION: UTI. HISTORY OF PRESENT ILLNESS: A 75-year-old female with partial expressive aphasia. She was admitted here on June [facility] from a senior living with fever. She has been given IM ceftriaxone prior to admission for suspected UTI. She has been given imipenem and consultation requested. She notes right oral pain as her chief complaint today, but cannot describe further exact site of her pain such as dental, gingival, mucosal, or otherwise. She denies back pain or suprapubic pain. There has been no manipulation of the Yo catheter recently that I can tell. ALLERGIES: MULTIPLE INCLUDING CLINDAMYCIN, DOXYCYCLINE, ERYTHROMYCIN, QUINOLONES, PENICILLIN, SULFA, AND SEPTRA DS, REACTIONS NOT AVAILABLE EXCEPT FOR NAUSEA WITH DOXYCYCLINE. HABITS: Ex-smoker. No alcohol. PRESENT MEDICATIONS: Reviewed in full. No immunosuppressants. 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 REVIEW OF SYSTEMS: Limited by the patient's expressive aphasia. A 14-point review is otherwise negative. FAMILY HISTORY: Noted to be positive but not pertinent to present illness. SOCIAL HISTORY: No family at the bedside. She is and retired homemaker. PHYSICAL EXAMINATION: GENERAL: This is a chronically ill-appearing female, in no acute distress. VITAL SIGNS: Afebrile since arrival, 71, 18, 112/77, 93% on room air. SKIN: Few ecchymoses, warm and dry. No rashes. NODES: No axillary or cervical adenopathy. EENT: Conjunctivae are normal. Pupils equal, round, and reactive to light. First molar right lower is absent as well as a premolar. There is no gingivitis, thrush, ulcerations, or any mucosal abnormalities seen, and she has no tenderness over the right cheek. NECK: No masses, thyromegaly or meningismus. LUNGS: Clear to auscultation and percussion. BACK: No CVAT. CARDIAC: Regular rate and rhythm. Normal S1, S2. No murmur, gallop, or rub. ABDOMEN: Soft, nontender. No masses. No organomegaly. : Yo catheter draining clear yellow urine. EXTREMITIES: Right AKA. On the left, she has a missing 4th toes. There is no evidence of infection at this site nor elsewhere in the leg. LABORATORY DATA: Urine culture with a pseudomonas, also enterococcus. I reviewed the susceptibilities. Blood cultures, no growth so far. White count 4.4 down from 5, hemoglobin stable at 10.9, platelets 252. No differential done today, but earlier was normal. Chemistries normal except for CO2 of 33 and BUN of 22. Folate is high. B12 is normal. Urinalysis, multiple abnormalities, which are reviewed. Influenza screen negative. Coronavirus assay and , both negative. RADIOLOGY DATA: Chest x-ray, no active disease. ASSESSMENT: 1. Fever, suspect due to pseudomonas urinary tract infection. Other sources less likely including healthcare-associated pneumonia, primary bloodstream infection, skin soft tissue infection, bone and joint infection of the left foot or right [id number] amputation site, drug fever or other causes. 2. Previous AKA. 3. Partial aphasia from stroke. 4. Chronic Yo catheter. 5. Multiple allergies. RECOMMENDATIONS: 1. Continue imipenem day 5 through July 04. 2. No options unfortunately for oral therapy. 3. The enterococcus is not in need of any additional treatment beyond the above and a question that it is pathogenic here. 4. No change to the Yo catheter is indicated. 5. No chronic antibiotic prophylaxis. Thank you very much for asking me to see her.
[2020-06-29] MEDS: traMADol HCL (*CRX) 50 MG TABLET PO (18:13)
[2020-06-29] MEDS: ATORVASTATIN 10 MG TABLET PO (21:15)
[2020-06-29] MEDS: oxyCODONE HCL (*CRX) 5 MG TAB IR PO (21:17)
[2020-06-29 22:00] VITALS: BP 121/55; PULSE 82; RESP 18; TEMP 36.7; O2SAT 92
[2020-06-29] MEDS: ONDANSETRON INJ 4 MG/2 ML VIAL IV PUSH (23:15)
[2020-06-30 06:00] VITALS: BP 123/65; PULSE 68; RESP 18; TEMP 36.6; O2SAT 93
[2020-06-30 06:30] LABS: Basophils Absolute Auto 0.1 K/mm3 (0.0-0.1); Basophils Percent Auto 1.5 % (0.2-1.2); Eosinophils Absolute Auto 0.2 K/mm3 (0-0.3); Eosinophils Percent Auto 4.2 % (0-4.4); Hematocrit 34.9 % (37.0-47.0); Immature Granulocyte Absolute 0.01 K/mm3 (0.00-0.031); Immature Granulocyte Percent A 0.2 % (0-0.5); Lymphocytes Absolute Auto 1.65 K/mm3 (0.9-3.2); Lymphocytes Percent Auto 36.4 % (18.3-44.2); Mean Corpuscular HGB Conc 31.5 g/dl (32-36); Mean Corpuscular Hemoglobin 32.2 pg (26-34); Mean Platelet Volume 10.1 fl (7.4-10.4); Monocytes Absolute Auto 0.6 K/mm3 (0.1-0.6); Monocytes Percent Auto 12.1 % (2.6-8.5); Neutrophils Absolute Auto 2.1 K/mm3 (1.3-6.7); Neutrophils Percent Auto 45.6 % (45.5-73.1); Platelet Count Result 227 k/mm3 (150-375); Red Blood Count 3.42 M/mm3 (4.2-5.4); White Blood Count 4.5 K/mm3 (4.5-10.0)
[2020-06-30 06:54] LABS: Anion Gap 3 mmol/L (8-16); Blood Urea Nitrogen 18 mg/dL (7-17); Carbon Dioxide 32 mmol/L (22-30); Chloride 106 mmol/L (98-107); Estimated CRCL calculation 44 ml/min; Estimated Glomerular Filt Rate > 60; Glucose 113 mg/dL (65-105); Potassium 4.2 mmol/L (3.4-5.0); Sodium 141 mmol/L (137-145)
[2020-06-30 08:00] VITALS: PULSE 83; RESP 18; O2SAT 91
[2020-06-30] MEDS: APIXABAN 2.5 MG TABLET PO ×2 (10:01→17:15)
[2020-06-30] MEDS: COLCHICINE 0.6 MG TABLET PO (10:01)
[2020-06-30] MEDS: traMADol HCL (*CRX) 50 MG TABLET PO ×2 (10:01→14:17)
[2020-06-30] MEDS: DOCUSATE SODIUM 100 MG CAPSULE PO (10:02)
[2020-06-30] MEDS: GABAPENTIN 300 MG CAPSULE PO ×3 (10:02→17:15)
[2020-06-30] MEDS: TAMSULOSIN HCL 0.4 MG CAPSULE PO (10:02)
[2020-06-30] MEDS: ASPIRIN 81 MG CHEWABLE TABLET PO (10:03)
[2020-06-30] MEDS: BACLOFEN 5 MG TABLET PO ×2 (10:03→17:15)
[2020-06-30] MEDS: CHOLECALCIFEROL 1,000 UNITS TABLET 1000 UNITS PO (10:03)
--- NOTE | 2020-06-30 11:21 | WPDINFPN2 ---
Progress Note: A&P Assessment and Plan (1) UTI (urinary tract infection): Code(s): N39.0 - Urinary tract infection, site not specified Status: Acute Assessment and Plan: 1. Fever/uti with chronic Yo. Pseudomonas isolated. 2. Prior stroke with partial aphasia 3. Multiple allergies, tolerating carbapenem REC Imipenem # 6 / 10 days through 07/04. Ok for midline, discussed. Ok to ECF once all arranged. Subjective Date/time seen: 06/30/20 11:21 Interval history: wants to return to her ECF. No abd pain and no dyspnea Exam Narrative: Exam Narrative: afebrile Const: General: no acute distress Eyes: General: appearance normal, both eyes and all related structures Resp: Effort & Inspection: normal respiratory effort Auscultation: clear to auscultation bilaterally Cardio: Rate: regular rate Rhythm: regular rhythm Heart sounds: no gallops and Murmur heart sound present GI: Inspection: non-distended GI Palp: Yes Soft to palpation, No Tenderness to palpation present (GI) and No Guarding due to palpation present (GI) Urinary Catheter: Urinary Catheter: patent and draining Skin: General skin exam: normal color and no rashes or lesions noted Objective Data Vital Signs Vital Signs: Vital Signs - 24 hr 06/29/20 14:00 06/29/20 22:00 06/30/20 06:00 Temperature 36.6 C 36.7 C 36.6 C Pulse Rate 92 82 68 Respiratory Rate 18 18 18 Blood Pressure 118/62 121/55 L 123/65 Pulse Oximetry 90 92 93 Intake/Output Intake/Output: Intake & Output 06/27/20 06/28/20 06/29/20 06/30/20 23:59 23:59 23:59 23:59 Intake Total 1110 1410 1340 390 Output Total 600 750 800 401 Balance 510 660 540 -11 Meds/Results Medications: Active Medications Generic Name Dose Route Start Last Admin Trade Name Freq PRN Reason Stop Dose Admin Acetaminophen 650 mg 06/25/20 10:32 Acetaminophen 325 Mg Tablet PO Q4H PRN Mild Pain (1-3) or Fever Albuterol 2 puff 06/25/20 16:54 Albuterol Sulfate (*Sp) Aerosol 1 Puff INHALATION QIDRT PRN Shortness Of Breath Apixaban 2.5 mg 06/25/20 17:00 06/30/20 10:01 Apixaban 2.5 Mg Tablet PO 2.5 mg BID [facility] Administration Aspirin 81 mg 06/26/20 09:00 06/30/20 10:03 Aspirin 81 Mg Chewable Tablet PO 81 mg DAILY [facility] Administration Atorvastatin Calcium 10 mg 06/25/20 21:00 06/29/20 21:15 Atorvastatin 10 Mg Tablet PO 10 mg HS L[facility]IS Administration Baclofen 5 mg 06/25/20 17:00 06/30/20 10:03 Baclofen 5 Mg Tablet PO 5 mg BID [facility] Administration Colchicine 0.6 mg 06/26/20 09:00 06/30/20 10:01 Colchicine 0.6 Mg Tablet PO 0.6 mg DAILY [facility] Administration Docusate Sodium 100 mg 06/26/20 09:00 06/30/20 10:02 Docusate Sodium 100 Mg Capsule PO 100 mg DAILY [facility] Administration Gabapentin 300 mg 06/25/20 17:00 06/30/20 10:02 Gabapentin 300 Mg Capsule PO 300 mg TID [facility] Administration Imipenem/Cilastatin Sodium 250 mg in 100 mls @ 300 mls/hr 06/25/20 18:00 06/30/20 08:29 Primaxin 250 Mg/D5w 100 Ml IVPB Infused Q6HR [facility] Infusion Dextrose 1,000 mls @ 100 mls/hr 06/27/20 14:19 Dextrose 5% 1,000 Ml IVPB PRN PRN Hypoglycemia Protocol Magnesium Hydroxide 5 ml 06/25/20 16:22 Magnesium Hydroxide Susp 30 Ml Udc PO DAILY PRN Constipation Morphine Sulfate 4 mg 06/25/20 10:32 Morphine Sulfate (*Crx) 4 Mg/Ml Inj IV PUSH Q2H PRN Pain Rated 7-10 Ondansetron HCl 4 mg 06/25/20 10:32 06/29/20 23:15 Ondansetron Inj 4 Mg/2 Ml Vial IV PUSH 4 mg Q4H PRN Administration Nausea Oxycodone HCl 5 mg 06/25/20 16:22 06/29/20 21:17 Oxycodone Hcl (*Crx) 5 Mg Tab Ir PO 5 mg Q6H PRN Administration PAIN RATED 7-10 Tamsulosin HCl 0.4 mg 06/26/20 09:00 06/30/20 10:02 Tamsulosin Hcl 0.4 Mg Capsule PO 0.4 mg DAILY [facility] Administration Tramadol HCl 50 mg 06/25/20 17:00 06/30/20 10:01 Tramadol Hcl (*Crx) 50 Mg Tablet PO 50
--- NOTE | 2020-06-30 13:14 | PM.DS ---
DS: Admitting Diagnosis Admitting Diagnosis Admitting Diagnosis: uti DS: Discharge Diagnosis Discharge Diagnosis (1) UTI (urinary tract infection): Code(s): N39.0 - Urinary tract infection, site not specified Status: Acute Assessment and Plan: The patient has a chronic indwelling henderson catheter due to neurogenic bladder. She has a hx of many multidrug-resistant UTIs. She received 7 days of IM ceftriaxone at the long term but fevers persisted up to 102F 06/25 prompting admission. Urinalysis was grossly abnormal and urinalysis demonstrates pseudomonas aeruginosa and enterococcus. Pseudomonas is susceptible to imipenem which she has been on. Enterococcus susceptibilities are pending. Dr. Blas with infectious disease was consulted as her allergies limit oral options for discharge. Dr. Blas recommends primaxin for 10 days total, through 07/04. Continue empiric primaxin (day 5/10 - initiated 06/25). She has not had any further fevers. Blood cultures demonstrate no growth to date. She may benefit from discussion with urology regarding SP tube placement given recurrent UTIs with the henderson catheter. Care coordination has reached out to the long term to see if she can continue IV primaxin at the facility. Will await further input from care coordination. (2) Hypertension: Code(s): I10 - Essential (primary) hypertension Status: Chronic Assessment and Plan: Blood pressures were elevated initially but have improved. Most recent BP is 118/62. She is not on any antihypertensives prior to admission. Continue to monitor BP closely. (3) Hyperlipidemia: Code(s): E78.5 - Hyperlipidemia, unspecified Status: Chronic Assessment and Plan: LFTs were reviewed and are normal. Continue atorvastatin. 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 Continue eliquis and ASA. Continue atorvastatin. (5) COPD (chronic obstructive pulmonary disease): Code(s): J44.9 - Chronic obstructive pulmonary disease, unspecified Status: Chronic Assessment and Plan: Chronic without acute issues. Continue bronchodilators as needed. (6) Chronic pain: Code(s): G89.29 - Other chronic pain Status: Chronic Assessment and Plan: Continue baclofen, gabapentin, lidocaine patch, and tramadol as needed. (7) Febrile illness: Code(s): R50.9 - Fever, unspecified Status: Acute Assessment and Plan: Likely secondary to UTI. Influenza was negative. COVID-19 testing was ordered and negative. (8) Pain, dental: Code(s): K08.89 - Other specified disorders of teeth and supporting structures Status: Acute Assessment and Plan: There is a filling present at the tooth she thinks may be hurting. I do not appreciate any abscess. I have recommended that she follow-up with the dentist outpatient for further evaluation. Continue analgesics as needed. Continue to monitor. (9) Anemia: Code(s): D64.9 - Anemia, unspecified Status: Acute Assessment and Plan: Macrocytic. She was not anemia on admission. Hb is 10.9 and Hct 11.2. She has no evidence of bleeding. Vitamin B12 and folate were sufficient.Iron is sufficient. Continue to monitor and transfuse as needed to maintain Hb >7. DS: Summary Time Spent with Patient Time attestation: Total time spent providing and/or coordinating discharge services: Exam Narrative: Exam Narrative: General: Well-developed, well-nourished, and chronically ill-appearing 75 y.o. female lying semi-recumbent in bed in no acute distress. HEENT: Normocephalic and atraumatic. EOMI. Oral mucosa moist. Several fillings in place. No periodontal abscess or drainage appreciated. Mild pain to palpation of the right molar with the tongue depressor. No posterior pharyngeal erythema or exudate.
[2020-06-30 14:00] VITALS: BP 131/69; PULSE 83; RESP 18; TEMP 36.7; O2SAT 91
[2020-06-30] MEDS: ONDANSETRON INJ 4 MG/2 ML VIAL IV PUSH (17:15)
[2020-06-30] MEDS: LIDOCAINE HCL 1% PF INJ 5 ML VIAL INFILTRATE (17:15)
--- NOTE | 2020-06-30 19:42 | PM.IMPN ---
Progress Note: A&P Assessment and Plan (1) UTI (urinary tract infection): Code(s): N39.0 - Urinary tract infection, site not specified Status: Acute Assessment and Plan: The patient has a chronic indwelling henderson catheter due to neurogenic bladder. hx of many multidrug-resistant UTIs. received 7 days of IM ceftriaxone at the long term but fevers persisted up to 102F 06/25 prompting admission. Urine cx demonstrates pseudomonas aeruginosa and enterococcus (VRE). Pseudomonas is susceptible to imipenem which she has been on. Dr. Blas with infectious disease was consulted as her allergies limit oral options for discharge. Dr. Blas recommends primaxin for 10 days total, through 07/04. Continue empiric primaxin (day 5/10 - initiated 06/25). Afebrile. Blood cultures demonstrate no growth to date. JOSSELYN will complete her IV antibiotics per PICC line per Director Report, awaiting for them to get the necessary pump, IV antibiotics, and medical supplies. (2) Hypertension: Code(s): I10 - Essential (primary) hypertension Status: Chronic Assessment and Plan: Blood pressures improved. Most recent BP is 123/65. not on any antihypertensives prior to admission. Continue to monitor BP (3) Hyperlipidemia: Code(s): E78.5 - Hyperlipidemia, unspecified Status: Chronic Assessment and Plan: LFTs were reviewed and are normal. Continue atorvastatin. 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 Continue eliquis and ASA. Continue atorvastatin. (5) COPD (chronic obstructive pulmonary disease): Code(s): J44.9 - Chronic obstructive pulmonary disease, unspecified Status: Chronic Assessment and Plan: Chronic without acute issues. Continue bronchodilators as needed. (6) Chronic pain: Code(s): G89.29 - Other chronic pain Status: Chronic Assessment and Plan: Continue baclofen, gabapentin, lidocaine patch, and tramadol as needed. (7) Febrile illness: Code(s): R50.9 - Fever, unspecified Status: Acute Assessment and Plan: Likely secondary to UTI. Influenza was negative. COVID-19 testing was ordered and negative. Fevers have resolved. (8) Pain, dental: Code(s): K08.89 - Other specified disorders of teeth and supporting structures Status: Acute Assessment and Plan: Other providers have already recommended that she follow-up with the dentist outpatient for further evaluation. Continue analgesics as needed. Patient denies any difficulty eating or drinking today. Patient denies any mouth or jaw pain Will continue to monitor (9) Anemia: Code(s): D64.9 - Anemia, unspecified Status: Acute Assessment and Plan: Macrocytic. She was not anemic on admission. Hgb is 11 and Hct 34.9. no evidence of bleeding. Vitamin B12, iron, and folate were checked. Continue to monitor and transfuse as needed to maintain Hb >7. Subjective Date/time seen: 06/30/20 19:42 Patient stated that she is feeling better today and very much wants to return to her home at [facility]. She states that she is anxious to get back where she can have her own routine, her own blankets, her own meals and foods that she likes, and see her family members again. She denies pain at any location, including her [place], her chest, or her abdomen. She is able to carry on conversations and denies any shortness of breath or dyspnea. Her urine culture showed Pseudomonas aeruginosa as well as VRE with sensitivities to imipenem, which she has been receiving in IV form. I did inform the patient that she would need to continue to receive IV antibiotics all the way through July 04, upon advice of Infectious Disease specialist. Her blood cultures x2 showed no growth. Will arrange for the patient to receive a PICC line today and t
[2020-06-30] MEDS: ATORVASTATIN 10 MG TABLET PO (19:58)
[2020-06-30 22:00] VITALS: BP 125/63; PULSE 78; RESP 18; TEMP 36.8; O2SAT 94
[2020-07-01 06:00] VITALS: BP 107/56; PULSE 72; RESP 18; TEMP 36.8; O2SAT 93
[2020-07-01] MEDS: ASPIRIN 81 MG CHEWABLE TABLET PO (09:31)
[2020-07-01] MEDS: APIXABAN 2.5 MG TABLET PO ×2 (09:31→17:24)
[2020-07-01] MEDS: BACLOFEN 5 MG TABLET PO ×2 (09:31→17:24)
[2020-07-01] MEDS: COLCHICINE 0.6 MG TABLET PO (09:32)
[2020-07-01] MEDS: GABAPENTIN 300 MG CAPSULE PO ×3 (09:32→17:24)
[2020-07-01] MEDS: TAMSULOSIN HCL 0.4 MG CAPSULE PO (09:32)
[2020-07-01] MEDS: CHOLECALCIFEROL 1,000 UNITS TABLET 1000 UNITS PO (09:32)
--- NOTE | 2020-07-01 10:28 | PM.DS ---
DS: Admitting Diagnosis Admitting Diagnosis Admitting Diagnosis: uti DS: Discharge Diagnosis Discharge Diagnosis (1) UTI (urinary tract infection): Code(s): N39.0 - Urinary tract infection, site not specified Status: Acute Assessment and Plan: The patient has a chronic indwelling henderson catheter due to neurogenic bladder. hx of many multidrug-resistant UTIs. received 7 days of IM ceftriaxone at the skilled nursing but fevers persisted up to 102F 06/25 prompting admission. Urine cx demonstrates pseudomonas aeruginosa and enterococcus (VRE). Pseudomonas is susceptible to imipenem which she has been on. Dr. Blas with infectious disease was consulted as her allergies limit oral options for discharge. Dr. Blas recommends primaxin for 10 days total, through 07/04. Continue empiric primaxin (day 5/10 - initiated 06/25). Afebrile. Blood cultures demonstrate no growth to date. JOSSELYN will complete her IV antibiotics per PICC line per [employer], awaiting for them to get the necessary pump, IV antibiotics, and medical supplies. (2) Hypertension: Code(s): I10 - Essential (primary) hypertension Status: Chronic Assessment and Plan: Blood pressures improved. Most recent BP is 123/65. not on any antihypertensives prior to admission. Continue to monitor BP (3) Hyperlipidemia: Code(s): E78.5 - Hyperlipidemia, unspecified Status: Chronic Assessment and Plan: LFTs were reviewed and are normal. Continue atorvastatin. 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 Continue eliquis and ASA. Continue atorvastatin. (5) COPD (chronic obstructive pulmonary disease): Code(s): J44.9 - Chronic obstructive pulmonary disease, unspecified Status: Chronic Assessment and Plan: Chronic without acute issues. Continue bronchodilators as needed. (6) Chronic pain: Code(s): G89.29 - Other chronic pain Status: Chronic Assessment and Plan: Continue baclofen, gabapentin, lidocaine patch, and tramadol as needed. (7) Febrile illness: Code(s): R50.9 - Fever, unspecified Status: Acute Assessment and Plan: Likely secondary to UTI. Influenza was negative. COVID-19 testing was ordered and negative. Fevers have resolved. (8) Pain, dental: Code(s): K08.89 - Other specified disorders of teeth and supporting structures Status: Acute Assessment and Plan: Other providers have already recommended that she follow-up with the dentist outpatient for further evaluation. Continue analgesics as needed. Patient denies any difficulty eating or drinking today. Patient denies any mouth or jaw pain Will continue to monitor (9) Anemia: Code(s): D64.9 - Anemia, unspecified Status: Acute Assessment and Plan: Macrocytic. She was not anemic on admission. Hgb is 11 and Hct 34.9. no evidence of bleeding. Vitamin B12, iron, and folate were checked. Continue to monitor and transfuse as needed to maintain Hb >7. DS: Summary Time Spent with Patient Time attestation: Total time spent providing and/or coordinating discharge services: Exam Narrative: Exam Narrative: General: Well-developed, well-nourished, and chronically ill-appearing 75 y.o. female lying semi-recumbent in bed in no acute distress. HEENT: Normocephalic and atraumatic. EOMI. Oral mucosa moist. No posterior pharyngeal erythema or exudate. Neck: Supple. Cardiac: Regular rate and rhythm. S1 and S2 normal. Lungs: Lungs are clear to auscultation bilaterally. Abdomen: Bowel sounds are normoactive. Abdomen is soft, non-distended, and non-tender. : Henderson catheter in place draining clear yellow urine. Extremities: Right AKA present. LLE without edema or calf tenderness. Left DP and PT 2+. Neurological: Alert. Exam non-focal to casual conver
--- NOTE | 2020-07-01 13:21 | WPDINFPN2 ---
Progress Note: A&P Assessment and Plan (1) UTI (urinary tract infection): Code(s): N39.0 - Urinary tract infection, site not specified Status: Acute Assessment and Plan: 1. Fever/uti with chronic Yo. Pseudomonas isolated. 2. Prior stroke with partial aphasia 3. Multiple allergies, tolerating carbapenem REC Imipenem # 7 / 10 days through 07/04. Subjective Date/time seen: 07/01/20 13:21 Interval history: no new complaints Exam Narrative: Exam Narrative: afebrile Const: General: no acute distress Resp: Auscultation: clear to auscultation bilaterally GI: Inspection: non-distended GI Palp: Yes Soft to palpation and No Tenderness to palpation present (GI) Urinary Catheter: Urinary Catheter: patent and draining and urine clear Objective Data Vital Signs Vital Signs: Vital Signs - 24 hr 06/30/20 14:00 06/30/20 22:00 07/01/20 06:00 Temperature 36.7 C 36.8 C 36.8 C Pulse Rate 83 78 72 Respiratory Rate 18 18 18 Blood Pressure 131/69 125/63 107/56 L Pulse Oximetry 91 94 93 Intake/Output Intake/Output: Intake & Output 06/28/20 06/29/20 06/30/20 07/01/20 23:59 23:59 23:59 23:59 Intake Total 1410 1340 900 270 Output Total 750 800 851 700 Balance 660 540 49 -430 Meds/Results Medications: Active Medications Generic Name Dose Route Start Last Admin Trade Name Freq PRN Reason Stop Dose Admin Acetaminophen 650 mg 06/25/20 10:32 Acetaminophen 325 Mg Tablet PO Q4H PRN Mild Pain (1-3) or Fever Albuterol 2 puff 06/25/20 16:54 Albuterol Sulfate (*Sp) Aerosol 1 Puff INHALATION QIDRT PRN Shortness Of Breath Apixaban 2.5 mg 06/25/20 17:00 07/01/20 09:31 Apixaban 2.5 Mg Tablet PO 2.5 mg BID [facility] Administration Aspirin 81 mg 06/26/20 09:00 07/01/20 09:31 Aspirin 81 Mg Chewable Tablet PO 81 mg DAILY [facility] Administration Atorvastatin Calcium 10 mg 06/25/20 21:00 06/30/20 19:58 Atorvastatin 10 Mg Tablet PO 10 mg HS [facility] Administration Baclofen 5 mg 06/25/20 17:00 07/01/20 09:31 Baclofen 5 Mg Tablet PO 5 mg BID [facility] Administration Colchicine 0.6 mg 06/26/20 09:00 07/01/20 09:32 Colchicine 0.6 Mg Tablet PO 0.6 mg DAILY [facility] Administration Docusate Sodium 100 mg 06/26/20 09:00 07/01/20 09:39 Docusate Sodium 100 Mg Capsule PO Not Given DAILY [facility] Gabapentin 300 mg 06/25/20 17:00 07/01/20 09:32 Gabapentin 300 Mg Capsule PO 300 mg TID [facility] Administration Imipenem/Cilastatin Sodium 250 mg in 100 mls @ 300 mls/hr 06/25/20 18:00 07/01/20 05:24 Primaxin 250 Mg/D5w 100 Ml IVPB Infused Q6HR [facility] Infusion Dextrose 1,000 mls @ 100 mls/hr 06/27/20 14:19 Dextrose 5% 1,000 Ml IVPB PRN PRN Hypoglycemia Protocol Magnesium Hydroxide 5 ml 06/25/20 16:22 Magnesium Hydroxide Susp 30 Ml Udc PO DAILY PRN Constipation Morphine Sulfate 4 mg 06/25/20 10:32 Morphine Sulfate (*Crx) 4 Mg/Ml Inj IV PUSH Q2H PRN Pain Rated 7-10 Ondansetron HCl 4 mg 06/25/20 10:32 06/30/20 17:15 Ondansetron Inj 4 Mg/2 Ml Vial IV PUSH 4 mg Q4H PRN Administration Nausea Oxycodone HCl 5 mg 06/25/20 16:22 06/29/20 21:17 Oxycodone Hcl (*Crx) 5 Mg Tab Ir PO 5 mg Q6H PRN Administration PAIN RATED 7-10 Tamsulosin HCl 0.4 mg 06/26/20 09:00 07/01/20 09:32 Tamsulosin Hcl 0.4 Mg Capsule PO 0.4 mg DAILY [facility] Administration Tramadol HCl 50 mg 06/25/20 17:00 06/30/20 14:17 Tramadol Hcl (*Crx) 50 Mg Tablet PO 50 mg QID PRN Administration Pain Rated 4-6 Vitamin D 1,000 units 06/26/20 09:00 07/01/20 09:32 Cholecalciferol 1,000 Units Tablet PO 1,000 units DAILY [facility] Administration Radiology Results: ITS Impressions Chest X-Ray 06/30/20 15:38 IMPRESSION: 1. PICC tip at the superior cavoatrial junction.
[2020-07-01] MEDS: traMADol HCL (*CRX) 50 MG TABLET PO ×2 (13:50→20:54)
[2020-07-01 14:00] VITALS: BP 112/63; PULSE 69; RESP 18; TEMP 36.9; O2SAT 94
--- NOTE | 2020-07-01 18:08 | PM.IMPN ---
Progress Note: A&P Assessment and Plan (1) UTI (urinary tract infection): Code(s): N39.0 - Urinary tract infection, site not specified Status: Acute Assessment and Plan: The patient has a chronic indwelling henderson catheter due to neurogenic bladder. hx of many multidrug-resistant UTIs. received 7 days of IM [facility]ftriaxone at the [facility] but fevers persisted up to 102F 06/25 prompting admission. Urine cx demonstrates pseudomonas aeruginosa and enterococcus (VRE). Pseudomonas is susceptible to imipenem which she has been on. Dr. Blas with infectious disease was consulted as her allergies limit oral options for discharge. Dr. Blas recommends primaxin for 10 days total, through 07/04. Continue empiric primaxin (day 5/10 - initiated 06/25). Afebrile. Blood cultures demonstrate no growth to date. JOSSELYN will complete her IV antibiotics per PICC line per [employer], awaiting for them to get the necessary pump, IV antibiotics, and medical supplies. (2) Hypertension: Code(s): I10 - Essential (primary) hypertension Status: Chronic Assessment and Plan: Blood pressures improved. Most recent BP is 123/65. not on any antihypertensives prior to admission. Continue to monitor BP (3) Hyperlipidemia: Code(s): E78.5 - Hyperlipidemia, unspecified Status: Chronic Assessment and Plan: LFTs were reviewed and are normal. Continue atorvastatin. 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 Continue eliquis and ASA. Continue atorvastatin. (5) COPD (chronic obstructive pulmonary disease): Code(s): J44.9 - Chronic obstructive pulmonary disease, unspecified Status: Chronic Assessment and Plan: Chronic without acute issues. Continue bronchodilators as needed. (6) Chronic pain: Code(s): G89.29 - Other chronic pain Status: Chronic Assessment and Plan: Continue baclofen, gabapentin, lidocaine patch, and tramadol as needed. (7) Febrile illness: Code(s): R50.9 - Fever, unspecified Status: Acute Assessment and Plan: Likely secondary to UTI. Influenza was negative. COVID-19 testing on 06/26 and 06/28 was ordered and negative. Fevers have resolved. COVID ordered again today. (8) Pain, dental: Code(s): K08.89 - Other specified disorders of teeth and supporting structures Status: Acute Assessment and Plan: Other providers have already recommended that she follow-up with the dentist outpatient for further evaluation. Continue analgesics as needed. Patient denies any difficulty eating or drinking today. Patient denies any mouth or jaw pain Will continue to monitor (9) Anemia: Code(s): D64.9 - Anemia, unspecified Status: Acute Assessment and Plan: Macrocytic. She was not anemic on admission. Hgb is 11 and Hct 34.9. no evidence of bleeding. Vitamin B12, iron, and folate were checked. Continue to monitor and transfuse as needed to maintain Hb >7. Subjective Date/time seen: 07/01/20 18:08 Patient was to be discharged today, but retirement informed us that they would have to have a recent negative COVID test on the patient before they could accept her. COVID testing was ordered. Afua is anxious to get back to her routine and back to her usual room at [facility]. She stated that she has no new pain or any new concerns since yesterday when I last visited with her and examined her. Her left upper arm PICC line is in place and confirmation of placement has been done through x-ray. Review of Systems Review of Systems: All systems reviewed & are unremarkable except as noted in HPI and below ROS unobtainable: Yes unobtainable due to mental status Constitutional: Constitutional: Reports as per HPI and Reports no additional constitutional complaints Eyes: Eye
[2020-07-01] MEDS: ATORVASTATIN 10 MG TABLET PO (20:46)
[2020-07-01 22:00] VITALS: BP 148/72; PULSE 81; RESP 18; TEMP 36.7; O2SAT 93
[2020-07-02] MEDS: oxyCODONE HCL (*CRX) 5 MG TAB IR PO (00:24)
[2020-07-02 05:34] LABS: Hematocrit 34.2 % (37.0-47.0); Hemoglobin 10.9 g/dL (12.0-15.0); Mean Corpuscular HGB Conc 31.9 g/dl (32-36); Mean Corpuscular Hemoglobin 32.9 pg (26-34); Mean Corpuscular Volume 103.3 fl (80-100); Mean Platelet Volume 10.6 fl (7.4-10.4); Platelet Count Result 211 k/mm3 (150-375); Red Blood Count 3.31 M/mm3 (4.2-5.4); Red Cell Distribution Width 11.9 % (11.5-14.5)
[2020-07-02 05:43] LABS: Alanine Aminotransferase 13 U/L (4-35); Albumin Level 3.2 g/dL (3.5-5.1); Alkaline Phosphatase 89 U/L (38-126); Anion Gap 2 mmol/L (8-16); Aspartate Amino Transferase 24 U/L (14-36); Bilirubin,Total 0.3 mg/dL (0.2-1.3); Blood Urea Nitrogen 17 mg/dL (7-17); Calcium 8.9 mg/dL (8.4-10.2); Carbon Dioxide 37 mmol/L (22-30); Chloride 102 mmol/L (98-107); Estimated CRCL calculation 44 ml/min; Estimated Glomerular Filt Rate > 60; Glucose 86 mg/dL (65-105); Potassium 4.1 mmol/L (3.4-5.0); Sodium 141 mmol/L (137-145)
[2020-07-02 06:00] VITALS: BP 146/57; PULSE 67; RESP 18; TEMP 36.6; O2SAT 91
[2020-07-02] MEDS: traMADol HCL (*CRX) 50 MG TABLET PO ×2 (06:36→17:51)
[2020-07-02] MEDS: ASPIRIN 81 MG CHEWABLE TABLET PO (09:45)
[2020-07-02] MEDS: ONDANSETRON INJ 4 MG/2 ML VIAL IV PUSH (09:45)
[2020-07-02] MEDS: GABAPENTIN 300 MG CAPSULE PO ×3 (09:45→17:52)
[2020-07-02] MEDS: CHOLECALCIFEROL 1,000 UNITS TABLET 1000 UNITS PO (09:46)
[2020-07-02] MEDS: APIXABAN 2.5 MG TABLET PO ×2 (09:46→17:51)
[2020-07-02] MEDS: BACLOFEN 5 MG TABLET PO ×2 (09:46→17:51)
[2020-07-02] MEDS: TAMSULOSIN HCL 0.4 MG CAPSULE PO (09:46)
[2020-07-02] MEDS: COLCHICINE 0.6 MG TABLET PO (09:46)
--- NOTE | 2020-07-02 10:31 | PCPTNOTE ---
Attempted to see patient for PT, however patient refused. Patient reported she does not due exercises and did not want to get out of bed, and that she will do her exercises when she gets home.
--- NOTE | 2020-07-02 12:13 | PM.DS ---
DS: Admitting Diagnosis Admitting Diagnosis Admitting Diagnosis: uti DS: Discharge Diagnosis Discharge Diagnosis (1) UTI (urinary tract infection): Code(s): N39.0 - Urinary tract infection, site not specified Status: Acute Assessment and Plan: The patient has a chronic indwelling henderson catheter due to neurogenic bladder. hx of many multidrug-resistant UTIs. received 7 days of IM ceftriaxone at the skilled nursing but fevers persisted up to 102F 06/25 prompting admission. Urine cx demonstrates pseudomonas aeruginosa and enterococcus (VRE). Pseudomonas is susceptible to imipenem which she has been on. Dr. Blas with infectious disease was consulted as her allergies limit oral options for discharge. Dr. Blas recommends primaxin for 10 days total, through 07/04. Continue empiric primaxin. Afebrile. Blood cultures demonstrate no growth to date. JOSSELYN will complete her IV antibiotics per PICC line per [employer], awaiting for them to get the necessary pump, IV antibiotics, and medical supplies. (2) Hypertension: Code(s): I10 - Essential (primary) hypertension Status: Chronic Assessment and Plan: Blood pressures improved. BPs stable. not on any antihypertensives prior to admission. Continue to monitor BP (3) Hyperlipidemia: Code(s): E78.5 - Hyperlipidemia, unspecified Status: Chronic Assessment and Plan: LFTs were reviewed and are normal. Continue atorvastatin. 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 Continue eliquis and ASA. Continue atorvastatin. (5) COPD (chronic obstructive pulmonary disease): Code(s): J44.9 - Chronic obstructive pulmonary disease, unspecified Status: Chronic Assessment and Plan: Chronic without acute issues. Continue bronchodilators as needed. (6) Chronic pain: Code(s): G89.29 - Other chronic pain Status: Chronic Assessment and Plan: Continue baclofen, gabapentin, lidocaine patch, and tramadol as needed. (7) Febrile illness: Code(s): R50.9 - Fever, unspecified Status: Acute Assessment and Plan: Likely secondary to UTI. Influenza was negative. COVID-19 testing on 06/26 and 06/28 was ordered and negative. Fevers have resolved. COVID ordered again and restuled negative again today, so that she could return to her senior care. (8) Pain, dental: Code(s): K08.89 - Other specified disorders of teeth and supporting structures Status: Acute Assessment and Plan: Other providers have already recommended that she follow-up with the dentist outpatient for further evaluation. Continue analgesics as needed. Patient denies any difficulty eating or drinking today. Patient denies any mouth or jaw pain Will continue to monitor (9) Anemia: Code(s): D64.9 - Anemia, unspecified Status: Acute Assessment and Plan: Macrocytic. She was not anemic on admission. Hgb is 11 and Hct 34.9. no evidence of bleeding. Vitamin B12, iron, and folate were checked. Continue to monitor and transfuse as needed to maintain Hb >7. DS: Summary Time Spent with Patient Time attestation: Total time spent providing and/or coordinating discharge services:90 minutes Exam Const: General: cooperative, healthy appearing, comfortable, no acute distress, well developed, alert, awake and Physically active Nutritional Appearance: average body habitus and well nourished Orientation/consciousness: oriented to person and oriented to place Limitations: no limitations HENMT: Head: normal to inspection, No palpable skull fracture present, normocephalic and atraumatic Ears: hearing grossly normal bilaterally and external ears normal General nose exam: Normal external nose present, Normal nares present and No nasal polyps present Eyes: General: appearance normal,
--- NOTE | 2020-07-02 13:00 | PCPTNOTE ---
Patient refused to be seen for Physical Therapy this PM due to her leaving.
[2020-07-02 13:32] LABS: SARS-CoV-2 RNA PCR Negative
[2020-07-02 14:00] VITALS: BP 124/56; PULSE 83; RESP 18; TEMP 36.7; O2SAT 94
--- NOTE | 2020-07-02 16:09 | WPDINFPN2 ---
Progress Note: A&P Assessment and Plan (1) UTI (urinary tract infection): Code(s): N39.0 - Urinary tract infection, site not specified Status: Acute Assessment and Plan: 1. Fever/uti with chronic Yo. Pseudomonas isolated. 2. Prior stroke with partial aphasia 3. Multiple allergies, tolerating carbapenem REC Imipenem # 8 / 10 days through 07/04. ok to SNF. call if qs Subjective Date/time seen: 07/02/20 16:09 Interval history: offers no complaints, asks when she is going home. Ambulance to take her back [facility] sometime today Exam Narrative: Exam Narrative: afebrile Const: General: no acute distress GI: Inspection: non-distended GI Palp: Yes Soft to palpation and No Tenderness to palpation present (GI) Objective Data Vital Signs Vital Signs: Vital Signs - 24 hr 07/01/20 22:00 07/02/20 06:00 07/02/20 14:00 Temperature 36.7 C 36.6 C 36.7 C Pulse Rate 81 67 83 Respiratory Rate 18 18 18 Blood Pressure 148/72 H 146/57 H 124/56 L Pulse Oximetry 93 91 94 Intake/Output Intake/Output: Intake & Output 06/29/20 06/30/20 07/01/20 07/02/20 23:59 23:59 23:59 23:59 Intake Total 5923 880 0694 740 Output Total 718 355 5993 1250 Balance 540 86 -388 -531 Meds/Results Medications: Active Medications Generic Name Dose Route Start Last Admin Trade Name Freq PRN Reason Stop Dose Admin Acetaminophen 650 mg 06/25/20 10:32 Acetaminophen 325 Mg Tablet PO Q4H PRN Mild Pain (1-3) or Fever Albuterol 2 puff 06/25/20 16:54 Albuterol Sulfate (*Sp) Aerosol 1 Puff INHALATION QIDRT PRN Shortness Of Breath Apixaban 2.5 mg 06/25/20 17:00 07/02/20 09:46 Apixaban 2.5 Mg Tablet PO 2.5 mg BID [facility] Administration Aspirin 81 mg 06/26/20 09:00 07/02/20 09:45 Aspirin 81 Mg Chewable Tablet PO 81 mg DAILY [facility] Administration Atorvastatin Calcium 10 mg 06/25/20 21:00 07/01/20 20:46 Atorvastatin 10 Mg Tablet PO 10 mg HS [facility] Administration Baclofen 5 mg 06/25/20 17:00 07/02/20 09:46 Baclofen 5 Mg Tablet PO 5 mg BID [facility] Administration Colchicine 0.6 mg 06/26/20 09:00 07/02/20 09:46 Colchicine 0.6 Mg Tablet PO 0.6 mg DAILY [facility] Administration Docusate Sodium 100 mg 06/26/20 09:00 07/02/20 09:51 Docusate Sodium 100 Mg Capsule PO Not Given DAILY [facility] Gabapentin 300 mg 06/25/20 17:00 07/02/20 13:52 Gabapentin 300 Mg Capsule PO 300 mg TID [facility] Administration Dextrose 1,000 mls @ 100 mls/hr 06/27/20 14:19 Dextrose 5% 1,000 Ml IVPB PRN PRN Hypoglycemia Protocol Imipenem/Cilastatin Sodium 250 mg in 100 mls @ 300 mls/hr 07/02/20 18:00 Primaxin 250 Mg/D5w 100 Ml IVPB Q6HR [facility] Magnesium Hydroxide 5 ml 06/25/20 16:22 Magnesium Hydroxide Susp 30 Ml Udc PO DAILY PRN Constipation Morphine Sulfate 4 mg 06/25/20 10:32 Morphine Sulfate (*Crx) 4 Mg/Ml Inj IV PUSH Q2H PRN Pain Rated 7-10 Ondansetron HCl 4 mg 06/25/20 10:32 07/02/20 09:45 Ondansetron Inj 4 Mg/2 Ml Vial IV PUSH 4 mg Q4H PRN Administration Nausea Oxycodone HCl 5 mg 06/25/20 16:22 07/02/20 00:24 Oxycodone Hcl (*Crx) 5 Mg Tab Ir PO 5 mg Q6H PRN Administration PAIN RATED 7-10 Tamsulosin HCl 0.4 mg 06/26/20 09:00 07/02/20 09:46 Tamsulosin Hcl 0.4 Mg Capsule PO 0.4 mg DAILY [facility] Administration Tramadol HCl 50 mg 06/25/20 17:00 07/02/20 06:36 Tramadol Hcl (*Crx) 50 Mg Tablet PO 50 mg QID PRN Administration Pain Rated 4-6 Vitamin D 1,000 units 06/26/20 09:00 07/02/20 09:46 Cholecalciferol 1,000 Units Tablet PO 1,000 units DAILY [facility] Administration Radiology Results: ITS Impressions Chest X-Ray 06/30/20 15:38 IMPRESSION: 1. PICC tip at the superior cavoatrial junction. Labs Labs: Laboratory Results - last 24 hr 07/02/20 07/02/20 07/02/20 04:23 05:20 05:20 WBC 5.0 RBC 3.31 L Hgb 10.9 L
== END 2020-07-02 17:58 | DRG 699 ==
LOC: ANHED 09:30 → ANH3MEDSUR 10:48
PROVIDERS: Nurse Practitioner; Physician Assistant; Admitting Provider Family Medicine; Emergency Provider Emergency Medicine; PCP Family Medicine; Visit Provider Nurse Practitioner
DX: T83.511A Infection and inflammatory reaction due to indwelling urethral catheter, initial encounter (principal); Z16.21 Resistance to vancomycin; N39.0 Urinary tract infection, site not specified; B96.5 Pseudomonas (aeruginosa) (mallei) (pseudomallei) as the cause of diseases classified elsewhere; B95.2 Enterococcus as the cause of diseases classified elsewhere; Z20.828 Contact with and (suspected) exposure to other viral communicable diseases; I10 Essential (primary) hypertension; E78.5 Hyperlipidemia, unspecified; I69.320 Aphasia following cerebral infarction; J44.9 Chronic obstructive pulmonary disease, unspecified; G89.29 Other chronic pain; K08.89 Other specified disorders of teeth and supporting structures; D53.9 Nutritional anemia, unspecified; K21.9 Gastro-esophageal reflux disease without esophagitis; F32.9 Major depressive disorder, single episode, unspecified; N31.9 Neuromuscular dysfunction of bladder, unspecified; Z96.0 Presence of urogenital implants; Z79.01 Long term (current) use of anticoagulants; Z79.82 Long term (current) use of aspirin; Z87.440 Personal history of urinary (tract) infections; Z87.891 Personal history of nicotine dependence; Z88.0 Allergy status to penicillin; Z88.2 Allergy status to sulfonamides; Z88.3 Allergy status to other anti-infective agents; Z89.611 Acquired absence of right leg above knee
CPT/HCPCS: 36415; 36569; 71045; 80048; 80053; 81001; 82607; 82728; 82746; 83540; 83550; 83735; 84466; 85025; 85027; 85055; 87040; 87077; 87086; 87088; 87186; 87635; 87804; 96365; 96366; 96375; 96376; 97162; 99285; A9270; C1751; C9803; G0378; J0743; J2405; U0003

== ENCOUNTER 2020-07-23 19:53 | Emergency (ER) | payer MEDICARE, MEDICAID, SELFPAY ==
--- NOTE | ~2020-07-23 | XR_ITS ---
EXAMINATION: XR chest 1V portable DATE: 07/23/2020 21:02 INDICATION: Transient alteration of awareness TECHNIQUE: frontal view of the chest was obtained. COMPARISON: Chest radiograph dated 06/26/2020 FINDINGS: Chronic eventration along the left hemidiaphragm. Lungs remain clear with no focal airspace opacities , pulmonary edema, pleural effusion or pneumothorax. The cardiomediastinal silhouette is normal. Bila teral rotator cuff arthropathy. IMPRESSION: 1. No acute cardiopulmonary disease. Reviewed, dictated and finalized at location H. FA[employer]URING CONTROLLER
[2020-07-23 19:53] VITALS: BP 163/69; PULSE 101; RESP 12; TEMP 36.6; O2SAT 92
--- NOTE | 2020-07-23 20:09 | ECG_ITS ---
Measurements Intervals [place] Rate: 90 P: 54 CA: 175 QRS: -36 QRSD: 127 T: 54 QT: 385 QTc: 472 Interpretive Statements SINUS RHYTHM LEFT AXIS DEVIATION LEFT BUNDLE BRANCH BLOCK BASELINE ARTIFACT- I, II, III, AVR, AVL ABNORMAL ECG Electronically Signed On 07-24-2020 9:23:41 [employer]ALLOW [employer]ER by Madhav Moreno D.O.
[2020-07-23] MEDS: SODIUM CHLORIDE 0.9% IV 500 ML 999 ML IV CONT (20:22)
[2020-07-23 20:36] LABS: Alveolar/Arterial O2 Gradient 66.1 mmHg; Base Excess ABG 2.2 mEq/l (+/-2.0); Device NASAL CANNULA; Fractional Inspired Oxygen 30 %; HCO3 ABG 28.6 mEq/l (22.0-26.0); Liters per Minute 2.5 LPM; Oxygen Saturation ABG 96.1 % (95.0-100.0); PCO2 ABG 51.9 mmHg (35.0-45.0); PO2 ABG 86.8 mmHg (80.0-100.0); PO2 FiO2 Ratio Arterial Blood 2.89 %; Site Drawn RIGHT BRACHIAL; Total Hemoglobin 12.7 g/dL (12.0-18.0); pH ABG 7.359 (7.350-7.450)
[2020-07-23 21:00] LABS: Basophils Percent Auto 0.8 % (0.2-1.2); Eosinophils Absolute Auto 0.3 K/mm3 (0-0.3); Hematocrit 37.3 % (37.0-47.0); Hemoglobin 11.7 g/dL (12.0-15.0); Immature Granulocyte Absolute 0.01 K/mm3 (0.00-0.031); Immature Granulocyte Percent A 0.2 % (0-0.5); Lymphocytes Absolute Auto 1.06 K/mm3 (0.9-3.2); Lymphocytes Percent Auto 21.2 % (18.3-44.2); Mean Corpuscular HGB Conc 31.4 g/dl (32-36); Mean Corpuscular Hemoglobin 31.9 pg (26-34); Mean Corpuscular Volume 101.6 fl (80-100); Mean Platelet Volume 10.5 fl (7.4-10.4); Monocytes Absolute Auto 0.4 K/mm3 (0.1-0.6); Neutrophils Absolute Auto 3.3 K/mm3 (1.3-6.7); Neutrophils Percent Auto 64.8 % (45.5-73.1); Platelet Count Result 175 k/mm3 (150-375); Red Blood Count 3.67 M/mm3 (4.2-5.4); Red Cell Distribution Width 11.7 % (11.5-14.5)
[2020-07-23 21:13] LABS: Alanine Aminotransferase 13 U/L (4-35); Albumin Level 3.6 g/dL (3.5-5.1); Alkaline Phosphatase 117 U/L (38-126); Anion Gap 4 mmol/L (8-16); Aspartate Amino Transferase 27 U/L (14-36); Bilirubin,Total 0.4 mg/dL (0.2-1.3); Blood Urea Nitrogen 11 mg/dL (7-17); Carbon Dioxide 30 mmol/L (22-30); Chloride 106 mmol/L (98-107); Estimated CRCL calculation 50 ml/min; Estimated Glomerular Filt Rate > 60; Glucose 103 mg/dL (65-105); Lactic Acid Reflex 0.6 mmol/L (0.7-2.1); Potassium 3.7 mmol/L (3.4-5.0); Sodium 140 mmol/L (137-145)
[2020-07-23 21:25] LABS: Troponin I < 0.012 ng/mL (0.000-0.034)
[2020-07-23 21:36] VITALS: BP 159/109; PULSE 84; RESP 12; O2SAT 94; O2SAT 96
[2020-07-23 22:00] LABS: Add Urine Microscopic? YES; Appearance Urine Cloudy (Clear); Bacteria Urine Trace /hpf; Bilirubin Urine Negative (Negative); Blood Urine 3+ (Negative); Color Urine Red (Yellow); Glucose Urine UA Negative (Negative); Ketones Urine Negative (Negative); Leukocyte Esterase Ur 3+ LEU/UL (Negative); Mucus Urine Rare /lpf; Nitrate Urine Negative (Negative); Protein Urine 1+ mg/dL (Negative); RBC Urine >75 /hpf (0-2); Specific Grav Ur 1.009 (1.001-1.035); Squamous Epithelial Cell Urine Rare /hpf (Few); Urobilinogen Urine Negative mg/dL (<2.0); WBC Urine >75 /hpf
[2020-07-23 22:35] LABS: NT Pro B Type Natriuretic Pept 1360 PG/ML (5-100)
[2020-07-23 22:47] VITALS: O2SAT 93
--- NOTE | 2020-07-23 23:04 | ED.GENADULT ---
HPI - General Adult General Chief complaint: Altered Mental Status Stated complaint: ELEVATED BP AND HR Time Seen by Provider: 07/23/20 20:01 History of Present Illness HPI narrative: Patient is a 75-year-old female who presents to emergency department with chief complaint of decreased responsiveness. The patient has history of UTIs and today they noticed that she was less active than normal. The patient was sent to the emergency department for further evaluation. The patient currently states that she has no real complaints and actually wants to go back. Related Data Home Medications Medication Instructions Recorded Confirmed Eliquis 2.5 mg PO BID 06/25/20 06/25/20 acetaminophen 1,000 mg PO QID PRN 06/25/20 06/25/20 aspirin 81 mg PO DAILY 06/25/20 06/25/20 atorvastatin 10 mg PO HS 06/25/20 06/25/20 baclofen 5 mg PO BID 06/25/20 06/25/20 cholecalciferol (vitamin D3) 25 mcg PO DAILY 06/25/20 06/25/20 [Vitamin D3] colchicine 0.6 mg PO DAILY 06/25/20 06/25/20 docusate sodium 100 mg PO DAILY 06/25/20 06/25/20 gabapentin 300 mg PO TID 06/25/20 06/25/20 lidocaine [Lidocaine Pain Relief] 1 patch TOPICAL DAILY PRN 06/25/20 06/25/20 magnesium hydroxide [Milk of 400 mg PO DAILY PRN 06/25/20 06/25/20 Magnesia] ondansetron HCl [Zofran] 4 mg PO Q8H 06/25/20 06/25/20 tamsulosin 0.4 mg PO DAILY 06/25/20 06/25/20 Allergies Allergy/AdvReac Type Severity Reaction Status Date / Time clindamycin Allergy Unknown Unknown Verified 06/25/20 14:27 doxycycline Allergy Unknown Nausea Verified 06/25/20 14:27 erythromycin base Allergy Unknown Unknown Verified 06/25/20 14:27 levofloxacin Allergy Unknown Unknown Verified 06/25/20 14:27 Penicillins Allergy Unknown Unknown Verified 06/25/20 14:27 Sulfa (Sulfonamide Allergy Unknown Unknown Verified 06/25/20 14:27 Antibiotics) sulfamethizole Allergy Unknown Unknown Verified 06/25/20 14:27 trimethoprim Allergy Unknown Unknown Verified 06/25/20 14:27 Review of Systems Review of Systems: Narrative: CONSTITUTIONAL: Denies fever, chills, or sweats. EYES: Denies visual changes, redness, or discharge. ENT: Denies rhinorrhea, congestion, sore throat, or otalgia. CARDIOVASCULAR: Denies chest pain, palpitations, or edema. RESPIRATORY: Denies cough or dyspnea. GASTROINTESTINAL: Denies abdominal pain, nausea, vomiting, or diarrhea. GENITOURINARY: Denies dysuria or hematuria. SKIN: Denies rash or itching. MUSCULOSKELETAL: Denies back pain, joint pain, or myalgia. NEUROLOGIC: Denies headache, numbness, or weakness. PSYCHIATRIC: Denies anxiety or depression. All systems reviewed & are unremarkable except as noted in HPI and below PMFSH Past Medical History Medical History Above knee amputation of right lower extremity Amputated toe 4th toe on the left Anxiety Cerebrovascular accident Chronic pain CKD (chronic kidney disease) COPD (chronic obstructive pulmonary disease) Depression Expressive aphasia GERD (gastroesophageal reflux disease) History of congestive heart failure Hyperlipidemia Hypertension Surgical History Surgical History H/O tubal ligation History of appendectomy History of section History of cholecystectomy History of tonsillectomy Family History Family History Father Cerebrovascular accident Hypertension Patient's father is Sibling Family history of lung cancer Family history of primary malignant neoplasm of liver Family history of malignant neoplasm of breast in first degree relative Family history of rheumatic fever Hypertension Patient's sister is Patient's brother is Mother Hypertension Family history of malignant neoplasm of cervix Patient's mother is Other Diabetes mellitus Family history of allergic disorder Family his
[2020-07-23] MEDS: NITROFURANTOIN MONOHYD MACROCR 100 MG CAP PO (23:07)
[2020-07-23 23:08] VITALS: BP 172/69; PULSE 88; RESP 17; TEMP 36.8; O2SAT 94
[2020-07-23 23:52] VITALS: BP 112/85; PULSE 87; RESP 18; TEMP 36.6; O2SAT 94
== END 2020-07-23 23:54 ==
PROVIDERS: Emergency Provider Emergency Medicine; PCP Family Medicine
DX: T83.511A Infection and inflammatory reaction due to indwelling urethral catheter, initial encounter (principal); N18.9 Chronic kidney disease, unspecified; I13.0 Hypertensive heart and chronic kidney disease with heart failure and stage 1 through stage 4 chronic kidney disease, or unspecified chronic kidney disease; E78.5 Hyperlipidemia, unspecified; I50.9 Heart failure, unspecified; J44.9 Chronic obstructive pulmonary disease, unspecified; K21.9 Gastro-esophageal reflux disease without esophagitis; Z86.73 Personal history of transient ischemic attack (TIA), and cerebral infarction without residual deficits; Z89.422 Acquired absence of other left toe(s); Z89.611 Acquired absence of right leg above knee; Z79.01 Long term (current) use of anticoagulants; Z79.82 Long term (current) use of aspirin; Z87.891 Personal history of nicotine dependence
CPT/HCPCS: 36415; 36600; 71045; 80053; 81001; 82805; 83605; 83880; 84484; 85025; 87086; 87088; 93005; 96360; 99284; A9270; J7040

== ENCOUNTER 2020-07-25 03:12 | Emergency (ER) | payer MEDICARE, MEDICAID, SELFPAY ==
--- NOTE | ~2020-07-25 | XR_ITS ---
EXAMINATION: XR chest 1V portable EXAM DATE: 07/25/2020 03:36 INDICATION: Shortness of breath. TECHNIQUE: Portable AP frontal chest x-ray was obtained. Comparison is made to prior examination from 07/23/2020. FINDINGS: Eventration of the left hemidiaphragm unchanged. There is tortuosity of the aorta. There is moderate thoracal lumbar scoliosis. There is an IVC filter. No confluent consolidation, pneumothorax or pleural effusion suspected. There are bony degenerative changes. Cardiomediastinal silhouette is normal. There is aortic arteriosclerosis. IMPRESSION: 1. No acute cardiopulmonary findings. Reviewed, dictated and finalized at location [facility]
[2020-07-25 03:21] VITALS: BP 162/100; PULSE 85; RESP 18; TEMP 37; O2SAT 94
--- NOTE | 2020-07-25 03:29 | ECG_ITS ---
Measurements Intervals [place] Rate: 88 P: 84 [place]: 163 QRS: -5 QRSD: 116 T: 70 QT: 368 QTc: 445 Interpretive Statements SINUS RHYTHM LEFT BUNDLE BRANCH BLOCK LOW QRS VOLTAGE IN LIMB LEADS BASELINE ARTIFACT- I, II, III, AVR, AVL, AVF ABNORMAL ECG Electronically Signed On 07-25-2020 10:02:34 ASSISTANT TEACHING PROFESSOR by Madhav Moreno D.O.
--- NOTE | 2020-07-25 03:46 | ED.GENADULT ---
HPI - General Adult General Chief complaint: Shortness of Breath/Dyspnea Stated complaint: pul ox in 80s at [place] Source: RN notes reviewed History of Present Illness HPI narrative: Patient presents emergency department from [facility] via EMS for hypoxia. History is per the patient as well as EMS. staff at patient's [facility] went to check on the patient morning the patient had been sleeping at that time was noted to have episode of apnea and was placed on a pulse ox with the O2 sat reading in the mid 80s. At that time EMS was called and patient was placed on oxygen when EMS arrived and found the patient to be sitting up in bed no acute distress she had no complaints of shortness of breath per the readings the patient's oxygen saturation at that time on 2 L nasal cannula was in the mid 90s and the patient was transported for further evaluation. Patient currently denies any symptoms at this time she denies any fevers chest pain shortness of breath the patient was seen in the emergency department last night for questionable change in mental status and was noted to have a UTI and placed on Macrobid Related Data Home Medications Medication Instructions Recorded Confirmed Eliquis 2.5 mg PO BID 06/25/20 06/25/20 acetaminophen 1,000 mg PO QID PRN 06/25/20 06/25/20 aspirin 81 mg PO DAILY 06/25/20 06/25/20 atorvastatin 10 mg PO HS 06/25/20 06/25/20 baclofen 5 mg PO BID 06/25/20 06/25/20 cholecalciferol (vitamin D3) 25 mcg PO DAILY 06/25/20 06/25/20 [Vitamin D3] colchicine 0.6 mg PO DAILY 06/25/20 06/25/20 docusate sodium 100 mg PO DAILY 06/25/20 06/25/20 gabapentin 300 mg PO TID 06/25/20 06/25/20 lidocaine [Lidocaine Pain Relief] 1 patch TOPICAL DAILY PRN 06/25/20 06/25/20 magnesium hydroxide [Milk of 400 mg PO DAILY PRN 06/25/20 06/25/20 Magnesia] ondansetron HCl [Zofran] 4 mg PO Q8H 06/25/20 06/25/20 tamsulosin 0.4 mg PO DAILY 06/25/20 06/25/20 Allergies Allergy/AdvReac Type Severity Reaction Status Date / Time clindamycin Allergy Unknown Unknown Verified 06/25/20 14:27 doxycycline Allergy Unknown Nausea Verified 06/25/20 14:27 erythromycin base Allergy Unknown Unknown Verified 06/25/20 14:27 levofloxacin Allergy Unknown Unknown Verified 06/25/20 14:27 Penicillins Allergy Unknown Unknown Verified 06/25/20 14:27 Sulfa (Sulfonamide Allergy Unknown Unknown Verified 06/25/20 14:27 Antibiotics) sulfamethizole Allergy Unknown Unknown Verified 06/25/20 14:27 trimethoprim Allergy Unknown Unknown Verified 06/25/20 14:27 Review of Systems Review of Systems: Narrative: Gen.: Denies fevers or chills Eyes: Denies eye pain or visual change ENT: Denies congestion Respiratory: Denies shortness of breath or cough see HPI CV: Denies chest pain or palpitations GI: Denies abdominal pain nausea, emesis or diarrhea currently treated for UTI Musculoskeletal: Denies back pain or muscle pain Neuro: Denies numbness, tingling, weakness or focal weakness Skin: Denies rash Except as documented, all other systems reviewed and negative PMFSH Past Medical History Medical History Above knee amputation of right lower extremity Amputated toe 4th toe on the left Anxiety Cerebrovascular accident Chronic pain CKD (chronic kidney disease) COPD (chronic obstructive pulmonary disease) Depression Expressive aphasia GERD (gastroesophageal reflux disease) History of congestive heart failure Hyperlipidemia Hypertension Surgical History Surgical History H/O tubal ligation History of appendectomy History of section History of cholecystectomy History of tonsillectomy Family History Family History Father Cerebrovascular accident Hypertension Patient's father is Sibling Family history of lung cancer Family history of primary malignant neoplasm of liver [facility]
[2020-07-25 03:53] LABS: Basophils Absolute Auto 0.1 K/mm3 (0.0-0.1); Basophils Percent Auto 0.8 % (0.2-1.2); Eosinophils Absolute Auto 0.1 K/mm3 (0-0.3); Eosinophils Percent Auto 1.1 % (0-4.4); Hematocrit 34.6 % (37.0-47.0); Hemoglobin 10.7 g/dL (12.0-15.0); Immature Granulocyte Absolute 0.01 K/mm3 (0.00-0.031); Immature Granulocyte Percent A 0.2 % (0-0.5); Lymphocytes Absolute Auto 0.57 K/mm3 (0.9-3.2); Lymphocytes Percent Auto 8.7 % (18.3-44.2); Mean Corpuscular HGB Conc 30.9 g/dl (32-36); Mean Corpuscular Hemoglobin 31.8 pg (26-34); Mean Corpuscular Volume 102.7 fl (80-100); Mean Platelet Volume 10.8 fl (7.4-10.4); Monocytes Absolute Auto 0.3 K/mm3 (0.1-0.6); Monocytes Percent Auto 4.1 % (2.6-8.5); Neutrophils Absolute Auto 5.6 K/mm3 (1.3-6.7); Neutrophils Percent Auto 85.1 % (45.5-73.1); Platelet Count Result 157 k/mm3 (150-375); Red Blood Count 3.37 M/mm3 (4.2-5.4); Red Cell Distribution Width 11.8 % (11.5-14.5); White Blood Count 6.6 K/mm3 (4.5-10.0)
[2020-07-25 04:00] LABS: Alanine Aminotransferase 14 U/L (4-35); Albumin Level 3.3 g/dL (3.5-5.1); Alkaline Phosphatase 104 U/L (38-126); Anion Gap 6 mmol/L (8-16); Aspartate Amino Transferase 29 U/L (14-36); Bilirubin,Total 0.5 mg/dL (0.2-1.3); Blood Urea Nitrogen 15 mg/dL (7-17); Calcium 8.5 mg/dL (8.4-10.2); Carbon Dioxide 28 mmol/L (22-30); Chloride 108 mmol/L (98-107); Estimated Glomerular Filt Rate > 60; Glucose 100 mg/dL (65-105); Potassium 4.2 mmol/L (3.4-5.0); Sodium 142 mmol/L (137-145)
[2020-07-25 04:33] VITALS: BP 143/80; PULSE 80; RESP 20; O2SAT 92
--- NOTE | 2020-07-25 06:01 | PC.NURSE ---
called [facility] to request transport. [id number]
[2020-07-25 06:55] VITALS: BP 179/84; PULSE 71; RESP 20; TEMP 36.9; O2SAT 96
== END 2020-07-25 06:57 ==
PROVIDERS: Emergency Provider Emergency Medicine; PCP Family Medicine
DX: R09.02 Hypoxemia (principal); J44.9 Chronic obstructive pulmonary disease, unspecified; K21.9 Gastro-esophageal reflux disease without esophagitis; I13.0 Hypertensive heart and chronic kidney disease with heart failure and stage 1 through stage 4 chronic kidney disease, or unspecified chronic kidney disease; N18.9 Chronic kidney disease, unspecified; E78.5 Hyperlipidemia, unspecified; I69.920 Aphasia following unspecified cerebrovascular disease; Z89.611 Acquired absence of right leg above knee; Z89.422 Acquired absence of other left toe(s); Z79.01 Long term (current) use of anticoagulants; Z79.82 Long term (current) use of aspirin; Z87.891 Personal history of nicotine dependence; I44.7 Left bundle-branch block, unspecified; R94.31 Abnormal electrocardiogram [ECG] [EKG]
CPT/HCPCS: 36415; 71045; 80053; 85025; 93005; 99283